=== PATIENT | female | born 1950 | race Caucasian/White ===

== ENCOUNTER 2017-09-18 08:41 | Day surgery (SDC) | payer OTHER, MEDICAID ==
[2017-09-18] MEDS ORDERED: TETRACAINE 0.5% OPHTH 1 DOSE AFFEYE ONE ×3 (10:20→11:44)
[2017-09-18] MEDS ORDERED: VIGAMOX 0.5% OPHTH 1 DOSE AFFEYE ONE ×5 (10:21→11:56)
[2017-09-18] MEDS ORDERED: PROLENSA OPHTH 1 DOSE AFFEYE ONE (10:32)
[2017-09-18] MEDS ORDERED: ALPHAGAN-P OPHTH 1 DOSE AFFEYE ONE (10:33)
[2017-09-18] MEDS ORDERED: CYCLOGYL 1% OPHTH 1 DOSE OP ONE ×3 (10:34→10:36)
[2017-09-18] MEDS ORDERED: MYDRIACIL OPHTH 1 DOSE AFFEYE ONE ×3 (10:34→10:36)
[2017-09-18] MEDS ORDERED: AK-DILATE 2.5% OPHTH 1 DOSE OP ONE ×3 (10:34→10:36)
[2017-09-18] MEDS ORDERED: AK-DILATE 10% OPHTH 1 DOSE AFFEYE ONE (10:48)
[2017-09-18] MEDS ORDERED: NS 500 ML IV 500 ML IV ONE (10:51)
[2017-09-18] MEDS ORDERED: BETADINE OPHTH SOLN 5% EACHEYE ONE (11:38)
[2017-09-18] MEDS ORDERED: DUOVISC IO ONE ×2 (11:44→11:50)
[2017-09-18] MEDS ORDERED: XYLOCAINE-MPF 1% IJ ONE (11:44)
[2017-09-18] MEDS ORDERED: BSS OPHTH (PLAIN) 500 ML with VANCOMYCIN HCL 500 MG VIAL 25 MG, ADRENALINE CHL INJ 1 MG IR ONE ×3 (11:44)
[2017-09-18] MEDS ORDERED: ADRENALINE CHL INJ IJ ONE (11:44)
[2017-09-18 15:01] VITALS: BP 159/77
[2017-09-18] MEDS ORDERED: DIPRIVAN VIAL ONE (15:52)
== END 2017-09-18 12:20 | disposition home or self-care (01) ==
LOC: SURG1 08:41
PROVIDERS: ATTEND Ophthalmology
PROC: 08RK3JZ Replacement of Left Lens with Synthetic Substitute, Percutaneous Approach (ICD-10-PCS; principal; 2017-09-18 13:30)
PROC: 08DK3ZZ Extraction of Left Lens, Percutaneous Approach (ICD-10-PCS; principal; 2017-09-18 13:30)
DX: H25.12 Age-related nuclear cataract, left eye (principal); H25.042 Posterior subcapsular polar age-related cataract, left eye
CPT/HCPCS: A4217; J0170; J3370; J3490

== ENCOUNTER → 2022-05-05 13:10 | Observation (INO) ==
[2022-05-03 01:05] VITALS: BMI 27.3
[2022-05-03] MEDS: CIPRO IV 400 MG PREMIX* 400 MG/200 ML IV.SOLN. IV SCH ×2 (02:05→12:59)
[2022-05-03] MEDS: FLAGYL IV PREMIX 500 MG BAG 500 MG/100 ML BAG IV SCH ×3 (02:05→17:25)
[2022-05-03] MEDS: D5 1/2 NS 1,000 ML 1,000 ML IV SCH ×4 (02:05→17:25)
[2022-05-03] MEDS: PROTONIX INJ 40 MG VIAL IVP SCH ×2 (02:06→08:12)
[2022-05-03 05:24] LABS: BASOPHILS # (AUTO) 0.1 X10^3/uL (0.0-0.1); BASOPHILS % (AUTO) 0.8 % (0.2-1.0); EOSINOPHILS # (AUTO) 0.1 x10^3/uL (0.0-0.2); EOSINOPHILS % (AUTO) 1.3 % (0.9-2.9); HEMATOCRIT 29.2 % (36.0-47.0); HEMOGLOBIN 9.9 g/dL (12.0-16.0); LYMPHOCYTES # (AUTO) 1.5 X10^3/uL (1.3-2.9); LYMPHOCYTES % (AUTO) 19.4 % (21.0-51.0); MEAN CORPUSCULAR HEMOGLOBIN 29.1 pg (27.0-34.0); MEAN CORPUSCULAR HGB CONC 33.9 g/dL (33.0-35.0); MEAN CORPUSCULAR VOLUME 85.8 fL (80.0-100.0); MEAN PLATELET VOLUME 7.9 fL (7.4-11.0); MONOCYTES # (AUTO) 0.9 x10^3/uL (0.3-0.8); NEUTROPHILS # (AUTO) 5.4 x10^3/uL (2.2-4.8); NEUTROPHILS % (AUTO) 67.5 % (42.0-75.0); RED BLOOD COUNT 3.41 X10^6/uL (3.5-5.4); RED CELL DISTRIBUTION WIDTH 14.7 % (11.6-16.5); WHITE BLOOD COUNT 7.9 X10^3/uL (3.6-10.0)
[2022-05-03 05:35] LABS: ALBUMIN 2.7 g/dL (3.4-5.0); CALCIUM 7.6 mg/dL (8.5-10.1); CARBON DIOXIDE 25.9 mmol/L (21-32); COR CA(FOR HYPOALB) 8.6 mg/dL (8.5-10.1); CREATININE 1.3 mg/dL (0.55-1.02); TOTAL PROTEIN 7.6 g/dL (6.4-8.2)
[2022-05-03] MEDS: TYLENOL 325 MG TAB PO PRN (15:35)
--- NOTE | 2022-05-03 16:38 | DR.PROGNOT ---
Hospital Progress Notes - Progress Note for Day of: Progress Note Date: 05/03/22 - Chief Complaint Chief Complaint: less diarrhea today . stil having Lt side abdominal pain . no nausea or vomiting .. - Past Medical Family Social History Past Med/Fam/Surg Hx: No changes since H&P Allergies: Allergies No Known Drug Allergies Allergy (Verified 09/04/17 11:18) - Review Of Systems ROS: No change since H&P - Vital Signs Vital Signs: Temperature 97.7 F Pulse Rate [Left Brachial] 62 Respiratory Rate 18 Blood Pressure [Left Arm] 134/62 Blood Pressure [Right Arm] 125/59 Blood Pressure 133/60 O2 Sat by Pulse Oximetry 99 - Physical Exam Oriented: Normal Eyes: Normal Ear: Normal Throat: Normal Respiratory: Normal Cardiovascular: Normal : Normal GI:Auscultation: Normal GI:Palpation: Normal GI: Tenderness: LUQ, LLQ (soft abdomen with moderate Lt side tenderness .. BS+ ) Speech Pattern: Clear, Appropriate - Laboratory and Diagnostics Result Diagrams: 05/03/22 04:36 05/03/22 04:36 Labs: Laboratory WBC 7.9 X10^3/uL (3.6-10.0) 05/03/22 04:36 RBC 3.41 X10^6/uL (3.5-5.4) L 05/03/22 04:36 Hgb 9.9 g/dL (12.0-16.0) L 05/03/22 04:36 Hct 29.2 % (36.0-47.0) L 05/03/22 04:36 MCV 85.8 fL (80.0-100.0) 05/03/22 04:36 MCH 29.1 pg (27.0-34.0) 05/03/22 04:36 MCHC 33.9 g/dL (33.0-35.0) 05/03/22 04:36 RDW 14.7 % (11.6-16.5) 05/03/22 04:36 Plt Count 130 X10^3/uL (150.0-450.0) L 05/03/22 04:36 MPV 7.9 fL (7.4-11.0) 05/03/22 04:36 Neut % (Auto) 67.5 % (42.0-75.0) 05/03/22 04:36 Lymph % (Auto) 19.4 % (21.0-51.0) L 05/03/22 04:36 [place] % (Auto) 11.0 % (0.0-13.0) 05/03/22 04:36 Eos % (Auto) 1.3 % (0.9-2.9) 05/03/22 04:36 Baso % (Auto) 0.8 % (0.2-1.0) 05/03/22 04:36 Neut # (Auto) 5.4 x10^3/uL (2.2-4.8) H 05/03/22 04:36 Lymph # (Auto) 1.5 X10^3/uL (1.3-2.9) 05/03/22 04:36 [place] # (Auto) 0.9 x10^3/uL (0.3-0.8) H 05/03/22 04:36 Eos # (Auto) 0.1 x10^3/uL (0.0-0.2) 05/03/22 04:36 Baso # (Auto) 0.1 X10^3/uL (0.0-0.1) 05/03/22 04:36 Absolute Nucleated RBC 0.1 /100WBC 05/03/22 04:36 Sodium 136 mmol/L (136-145) 05/03/22 04:36 Corrected Sodium 137 mmol/L (136-145) 05/03/22 04:36 Potassium 3.6 mmol/L (3.5-5.1) 05/03/22 04:36 Chloride 104 mmol/L (98-107) 05/03/22 04:36 Carbon Dioxide 25.9 mmol/L (21-32) 05/03/22 04:36 BUN 12 mg/dL (7-18) 05/03/22 04:36 Creatinine 1.30 mg/dL (0.55-1.02) H 05/03/22 04:36 Est GFR (MDRD) Af Amer 52 (>60) L 05/03/22 04:36 Est GFR (MDRD) Non-Af 43 (>60) L 05/03/22 04:36 Glucose 126 mg/dL (65-99) H 05/03/22 04:36 POC Glucose (mg/dL) 127 mg/dL (65-99) H 05/03/22 05:33 Calcium 7.6 mg/dL (8.5-10.1) L 05/03/22 04:36 Corrected Calcium 8.6 mg/dL (8.5-10.1) 05/03/22 04:36 Total Bilirubin 0.50 mg/dL (0.2-1.0) 05/03/22 04:36 AST 15 Units/L (15-37) 05/03/22 04:36 ALT 8 Units/L (12-78) L 05/03/22 04:36 Alkaline Phosphatase 66 Units/L (46-116) 05/03/22 04:36 Total Protein 7.6 g/dL (6.4-8.2) 05/03/22 04:36 Albumin 2.7 g/dL (3.4-5.0) L 05/03/22 04:36 Globulin 4.9 g/dL (2.5-4.5) H 05/03/22 04:36 Albumin/Globulin Ratio 0.6 Ratio (1.1-2.1) L 05/03/22 04:36 Stool Description 10 grams 05/03/22 11:10 Stl Occult Blood (IFOB) Positive (NEGATIVE) A 05/03/22 11:10 Stl C. diff Tox B Gene Negative (NEGATIVE) 05/03/22 11:10 Stl C. diff [id number] Presumptive negative (NEGATIVE) 05/03/22 11:10 - Assessment and Plan 1: abdominal pain . positive blood in stool . abnormal CT possible colon mass distal TC . Rt colitis . on IV ABT , check stool for C Dif. for colonoscopy
[2022-05-03] MEDS: NEURONTIN CAP 300 MG PO SCH (23:59)
[2022-05-03] MEDS: REQUIP PO SCH (23:59)
[2022-05-04] MEDS: D5 1/2 NS 1,000 ML 1,000 ML IV SCH ×4 (00:59→21:39)
[2022-05-04] MEDS: CIPRO IV 400 MG PREMIX* 400 MG/200 ML IV.SOLN. IV SCH ×2 (02:23→13:52)
[2022-05-04] MEDS: FLAGYL IV PREMIX 500 MG BAG 500 MG/100 ML BAG IV SCH ×3 (02:23→17:01)
[2022-05-04] MEDS: NEURONTIN CAP 300 MG PO SCH ×3 (06:23→21:37)
[2022-05-04] MEDS: SYNTHROID 25 mcg TAB PO SCH (06:24)
[2022-05-04] MEDS: GLUCOTROL PO SCH ×2 (06:25→17:01)
[2022-05-04] MEDS: GLUCOPHAGE PO SCH ×2 (08:04→17:00)
[2022-05-04] MEDS: GOLYTELY or GAVILYTE or Equivalent PO SCH (09:30)
[2022-05-04] MEDS: ALDACTONE TAB 25 MG PO SCH (09:30)
[2022-05-04] MEDS: PROTONIX INJ 40 MG VIAL IVP SCH (09:30)
[2022-05-04] MEDS: TOPROL XL PO SCH (09:30)
--- NOTE | 2022-05-04 15:28 | DR.PROGNOT ---
Hospital Progress Notes - Progress Note for Day of: Progress Note Date: 05/04/22 - Chief Complaint Chief Complaint: less diarrhea today . stil having Lt side abdominal pain . no nausea or vomiting .. no rectal bleeding . C Dif was negative .. stool for blood was positve . afebrile .. - Past Medical Family Social History Past Med/Fam/Surg Hx: No changes since H&P Allergies: Allergies No Known Drug Allergies Allergy (Verified 09/04/17 11:18) - Review Of Systems ROS: No change since H&P - Vital Signs Vital Signs: Temperature 98.3 F Pulse Rate [Left Brachial] 58 Respiratory Rate 20 Blood Pressure [Left Arm] 126/64 Blood Pressure [Right Arm] 125/59 Blood Pressure 133/60 O2 Sat by Pulse Oximetry 98 - Physical Exam Oriented: Normal Eyes: Normal Ear: Normal Nose: Normal Throat: Normal Respiratory: Normal Cardiovascular: Normal : Normal GI:Auscultation: Normal GI:Palpation: Normal GI: Tenderness: LUQ, LLQ (soft abdomen with moderate Lt side tenderness .. BS+ ) Speech Pattern: Clear, Appropriate - Laboratory and Diagnostics Result Diagrams: 05/03/22 04:36 05/03/22 04:36 Labs: Laboratory WBC 7.9 X10^3/uL (3.6-10.0) 05/03/22 04:36 RBC 3.41 X10^6/uL (3.5-5.4) L 05/03/22 04:36 Hgb 9.9 g/dL (12.0-16.0) L 05/03/22 04:36 Hct 29.2 % (36.0-47.0) L 05/03/22 04:36 MCV 85.8 fL (80.0-100.0) 05/03/22 04:36 MCH 29.1 pg (27.0-34.0) 05/03/22 04:36 MCHC 33.9 g/dL (33.0-35.0) 05/03/22 04:36 RDW 14.7 % (11.6-16.5) 05/03/22 04:36 Plt Count 130 X10^3/uL (150.0-450.0) L 05/03/22 04:36 MPV 7.9 fL (7.4-11.0) 05/03/22 04:36 Neut % (Auto) 67.5 % (42.0-75.0) 05/03/22 04:36 Lymph % (Auto) 19.4 % (21.0-51.0) L 05/03/22 04:36 [place] % (Auto) 11.0 % (0.0-13.0) 05/03/22 04:36 Eos % (Auto) 1.3 % (0.9-2.9) 05/03/22 04:36 Baso % (Auto) 0.8 % (0.2-1.0) 05/03/22 04:36 Neut # (Auto) 5.4 x10^3/uL (2.2-4.8) H 05/03/22 04:36 Lymph # (Auto) 1.5 X10^3/uL (1.3-2.9) 05/03/22 04:36 [place] # (Auto) 0.9 x10^3/uL (0.3-0.8) H 05/03/22 04:36 Eos # (Auto) 0.1 x10^3/uL (0.0-0.2) 05/03/22 04:36 Baso # (Auto) 0.1 X10^3/uL (0.0-0.1) 05/03/22 04:36 Absolute Nucleated RBC 0.1 /100WBC 05/03/22 04:36 Sodium 136 mmol/L (136-145) 05/03/22 04:36 Corrected Sodium 137 mmol/L (136-145) 05/03/22 04:36 Potassium 3.6 mmol/L (3.5-5.1) 05/03/22 04:36 Chloride 104 mmol/L (98-107) 05/03/22 04:36 Carbon Dioxide 25.9 mmol/L (21-32) 05/03/22 04:36 BUN 12 mg/dL (7-18) 05/03/22 04:36 Creatinine 1.30 mg/dL (0.55-1.02) H 05/03/22 04:36 Est GFR (MDRD) Af Amer 52 (>60) L 05/03/22 04:36 Est GFR (MDRD) Non-Af 43 (>60) L 05/03/22 04:36 Glucose 126 mg/dL (65-99) H 05/03/22 04:36 POC Glucose (mg/dL) 167 mg/dL (65-99) H 05/04/22 12:06 Calcium 7.6 mg/dL (8.5-10.1) L 05/03/22 04:36 Corrected Calcium 8.6 mg/dL (8.5-10.1) 05/03/22 04:36 Total Bilirubin 0.50 mg/dL (0.2-1.0) 05/03/22 04:36 AST 15 Units/L (15-37) 05/03/22 04:36 ALT 8 Units/L (12-78) L 05/03/22 04:36 Alkaline Phosphatase 66 Units/L (46-116) 05/03/22 04:36 Total Protein 7.6 g/dL (6.4-8.2) 05/03/22 04:36 Albumin 2.7 g/dL (3.4-5.0) L 05/03/22 04:36 Globulin 4.9 g/dL (2.5-4.5) H 05/03/22 04:36 Albumin/Globulin Ratio 0.6 Ratio (1.1-2.1) L 05/03/22 04:36 Stool Description Brown liquid 05/03/22 21:07 Stl Occult Blood (IFOB) Negative (NEGATIVE) 05/03/22 21:07 Stl C. diff Tox B Gene Cancelled 05/03/22 21:07 Stl C. diff [id number] Cancelled 05/03/22 21:07 - Assessment and Plan 1: abdominal pain . positive blood in stool . abnormal CT possible colon mass distal TC . Rt colitis . on IV ABT ,. for colonoscopy in Am
[2022-05-04] MEDS: REQUIP PO SCH (21:37)
[2022-05-04] MEDS: TYLENOL 325 MG TAB PO PRN (21:37)
[2022-05-05] MEDS: CIPRO IV 400 MG PREMIX* 400 MG/200 ML IV.SOLN. IV SCH (00:45)
[2022-05-05] MEDS: FLAGYL IV PREMIX 500 MG BAG 500 MG/100 ML BAG IV SCH ×2 (00:50→08:54)
[2022-05-05] MEDS: D5 1/2 NS 1,000 ML 1,000 ML IV SCH ×2 (00:52→09:37)
[2022-05-05] MEDS: NEURONTIN CAP 300 MG PO SCH (06:07)
[2022-05-05] MEDS: GLUCOPHAGE PO SCH (06:07)
[2022-05-05] MEDS: GLUCOTROL PO SCH (06:07)
[2022-05-05] MEDS: SYNTHROID 25 mcg TAB PO SCH (06:07)
[2022-05-05] MEDS: ALDACTONE TAB 25 MG PO SCH ×2 (08:53→09:29)
[2022-05-05] MEDS: GOLYTELY or GAVILYTE or Equivalent PO SCH (08:54)
[2022-05-05] MEDS: TOPROL XL PO SCH ×2 (08:54→09:28)
[2022-05-05] MEDS: PROTONIX INJ 40 MG VIAL IVP SCH (08:54)
[2022-05-05 12:44] VITALS: BP 115/57
[~2022-05-05 13:10] MED LIST: DIPRIVAN VIAL 20 ML ONE; FLAGYL IV PREMIX 500 MG BAG 500 MG/100 ML BAG IV SCH; GLUCOPHAGE ONE; GOLYTELY or GAVILYTE or Equivalent PO ONE; MORPHINE SULFATE INJ 4 MG IVP PRN; NS 1,000 ML IV 1,000 ML ONE; REQUIP PO SCH; SNACK - Diabetic Appropriate PO SCH; TYLENOL 325 MG TAB PO ONE; ZOFRAN INJ 4 MG VIAL IVP PRN
== END | disposition home or self-care (01) ==
LOC: MED/SURG
PROVIDERS: ADMIT Surgery; ATTEND Surgery
DX: K57.30 Diverticulosis of large intestine without perforation or abscess without bleeding; R93.3 Abnormal findings on diagnostic imaging of other parts of digestive tract; R19.00 Intra-abdominal and pelvic swelling, mass and lump, unspecified site; D64.89 Other specified anemias

== ENCOUNTER 2022-05-24 16:36 | Inpatient (IN) ==
--- NOTE | 2022-05-24 18:15 | DR.EXTPAIN ---
HPI Time seen Time Seen by Provider: 05/24/22 18:12 PCP Primary Care Physician: brooke cruz HPI Comment HPI Comment: A 72 y/o female presents to this ED as referred by an outside surgeon to be evaluated for IV antibiotics and debridement of a diabetic ulcer. She statesthat she noted a spontaneous swelling and erythema to her Rt. foot 3 days ago. She set up an appt. at the wound clinic in [place], [place] and was seen by Dr. Webb. She states the wound on her Rt. foot was opened and packed/dressed and she was given a note and asked to come here to this ED. Complaint/Symptoms Chief Complaint:: pt woke up sunday with red and swollen right foot that had a white blister on it that popped. pt set up an appointment with wound clinic to see today and was reffered to the er here. pt right foot was packed with iodoform and wrapped over in the office today. Nurses notes reviewed Nurses Notes Review: Yes Source History Provided: Patient and Family Member Mode of arrival Mode of Arrival: Ambulatory Timing Onset of Chief Complaint: 05/21/22 Context History of: None Associated signs and symptoms Associated Signs and Symptoms: None PMH PMH Past Medical History: Yes Past Medical History: Arthritis, Diabetes and Hypertension Past Medical History Comment: cancer-ovarian, irregular heartbeat. Past Surgical History: Yes Surgical History: , Hysterectomy and Ortho Surgery Past Surgical History Comment: hernia repair x2. Family History History of Family Medical Conditions: Yes Family Medical History: Diabetes Mellitus, Cancer and Hypertension Social History Does patient currently use any type of tobacco product: No Have you used tobacco products in the last 12 months: No Type of Tobacco Use: None Does any household member use tobacco: No Alcohol Use: None Do you use any recreational Drugs:: No Lives With: Alone Infectious screening In the last 2 months have you had wt loss of >10#?: NO Have you had fever, night sweats or hemotysis?: No Have you traveled outside the country in the last 6 months?: No Isolation: Standard ROS Review of Systems Constitutional: No Symptoms Reported Eyes: No Symptoms Reported ENTM: No Symptoms Reported Respiratoy: No Symptoms Reported Cardiovascular: No Symptoms Reported Gastrointestinal/Abdominal: No Symptoms Reported Genitourinary: No Symptoms Reported Neurological: No Symptoms Reported Musculoskeletal: Foot (swelling and erythema, Rt. toes/foot) Integumentary: No Symptoms Reported Hematologic/Lymphatic: No Symptoms Reported Endocrine: No Symptoms Reported Psychiatric: No Symptoms Reported All Other Systems: Reviewed and Negative PE Vital Signs Vitals: Temperature 98.1 F Pulse Rate [Right Brachial] 59 Pulse Rate 64 Respiratory Rate 17 Blood Pressure [Left Arm] 139/65 Blood Pressure 177/72 O2 Sat by Pulse Oximetry 100 General Limitations: No Limitations General Appearance: Alert and In No Apparent Distress Head Head Exam: Normal Inspection, Atraumatic and Normocephalic Eyes Eye exam: Normal Appearance and EOMI ENT ENT Exam: Normal Exam, Normal Oropharynx, Normal External Ear Exam and Mucous Membranes Moist Neck Neck Exam: Normal Inspection, Full ROM and Trachea Midline Chest Chest Inspection: Normal Inspection and Symmetric Chest Wall Rise Respiratory Respiratory Exam: Normal Lung Sounds Bilat Cardiovascular Cardiovascular Exam: Regular Rate, Normal Rhythm, Normal Heart Sounds, +S1 and +S2 Abdominal Exam Abdominal Exam: Normal Inspection, Normal Bowel Sounds and Soft Lower Extremities Upper Leg Exam: Normal Inspection and Full ROM Knee Exam: Normal Inspection and Full ROM Lower Leg Exam: Normal Inspection and Full ROM Ankle Exam: Normal Inspection and Full ROM Foot/Toe Exam: Tenderness (distal Rt. foot, 2nd, 3rd and 4th toes on Rt. foot ), Swelling (distal Rt. foot, 2nd, 3rd and 4th toes on Rt. foot ) and Erythema (distal Rt. foot, 2nd, 3rd and 4th toes on Rt. foot ) Back Back Exam: Normal Inspection and Full ROM Neurological Neurological Exam: Alert and Oriented X3 Psychiatric Psychiatric Exam: Normal Affect and Normal Mood Skin Skin Exam: Dry, Intact and Normal Color COURSE Treatment Treatment: The dressing on the Rt. foot was taken down and I saw what was underlying there. This wound description and the pt's hx. and initial I & D from outside facility were discussed on-call surgeon here (Dr. Garcia) who agree to have the pt. admitted to his service. Admit orders have been written. Reevaluation 1st: Unchanged Education/Counseling Education/Counseling: Patient, Family, Education and Counseling Educated On: Treatment, Diagnosis, Prognosis and Needs for Follow Up ROR Labs Reviewed Laboratory Results Reviewed?: Yes Result Diagrams: 05/24/22 18:35 05/24/22 18:35 Laboratory: WBC 9.7 X10^3/uL (3.6-10.0) 05/24/22 18:35 RBC 3.62 X10^6/uL (3.5-5.4) 05/24/22 18:35 Hgb 10.7 g/dL (12.0-16.0) L 05/24/22 18:35 Hct 31.4 % (36.0-47.0) L 05/24/22 18:35 MCV 86.7 fL (80.0-100.0) 05/24/22 18:35 MCH 29.6 pg (27.0-34.0) 05/24/22 18:35 MCHC 34.2 g/dL (33.0-35.0) 05/24/22 18:35 RDW 16.1 % (11.6-16.5) 05/24/22 18:35 Plt Count 212 X10^3/uL (150.0-450.0) 05/24/22 18:35 MPV 7.3 fL (7.4-11.0) L 05/24/22 18:35 Neut % (Auto) 69.1 % (42.0-75.0) 05/24/22 18:35 Lymph % (Auto) 18.4 % (21.0-51.0) L 05/24/22 18:35 [place] % (Auto) 9.7 % (0.0-13.0) 05/24/22 18:35 Eos % (Auto) 1.9 % (0.9-2.9) 05/24/22 18:35 Baso % (Auto) 0.9 % (0.2-1.0) 05/24/22 18:35 Neut # (Auto) 6.7 x10^3/uL (2.2-4.8) H 05/24/22 18:35 Lymph # (Auto) 1.8 X10^3/uL (1.3-2.9) 05/24/22 18:35 [place] # (Auto) 0.9 x10^3/uL (0.3-0.8) H 05/24/22 18:35 Eos # (Auto) 0.2 x10^3/uL (0.0-0.2) 05/24/22 18:35 Baso # (Auto) 0.1 X10^3/uL (0.0-0.1) 05/24/22 18:35 Absolute Nucleated RBC 0.0 /100WBC 05/24/22 18:35 Sodium 133 mmol/L (136-145) L 05/24/22 18:35 Corrected Sodium TNP 05/24/22 18:35 Potassium 4.0 mmol/L (3.5-5.1) 05/24/22 18:35 Chloride 97 mmol/L (98-107) L 05/24/22 18:35 Carbon Dioxide 28.9 mmol/L (21-32) 05/24/22 18:35 BUN 10 mg/dL (7-18) 05/24/22 18:35 Creatinine 1.13 mg/dL (0.55-1.02) H 05/24/22 18:35 Est GFR (MDRD) Af Amer > 60 (>60) 05/24/22 18:35 Est GFR (MDRD) Non-Af 50 (>60) L 05/24/22 18:35 Glucose 69 mg/dL (65-99) 05/24/22 18:35 Calcium 8.7 mg/dL (8.5-10.1) 05/24/22 18:35 Corrected Calcium 9.4 mg/dL (8.5-10.1) 05/24/22 18:35 Total Bilirubin 0.40 mg/dL (0.2-1.0) 05/24/22 18:35 AST 19 Units/L (15-37) 05/24/22 18:35 ALT 14 Units/L (12-78) 05/24/22 18:35 Alkaline Phosphatase 105 Units/L (46-116) 05/24/22 18:35 Total Protein 9.1 g/dL (6.4-8.2) H 05/24/22 18:35 Albumin 3.1 g/dL (3.4-5.0) L 05/24/22 18:35 Globulin 6.0 g/dL (2.5-4.5) H 05/24/22 18:35 Albumin/Globulin Ratio 0.5 Ratio (1.1-2.1) L 05/24/22 18:35 Opioid Opioid Risk Tool Age (Adarsh box if 16-45): No History of Preadolescent Sexual Abuse: No Total: 0 Total Score Risk Category: Low Risk Copyright: Louie NEGRO predicting aberrant behaviors Discharge Plan Diagnosis Discharge Problem: HTN (hypertension) Diabetic foot ulcer Qualifiers: Diabetic foot ulcer location: toe Diabetes mellitus type: type 2 Laterality: right Non-pressure ulcer stage: with fat layer exposed Qualified Code(s): E11.621 - Type 2 diabetes mellitus with foot ulcer Discharge Plan Patient Disposition: 09 ADMITTED INPATIENT Condition: Stable
[2022-05-24 18:47] LABS: BASOPHILS # (AUTO) 0.1 X10^3/uL (0.0-0.1); BASOPHILS % (AUTO) 0.9 % (0.2-1.0); EOSINOPHILS # (AUTO) 0.2 x10^3/uL (0.0-0.2); EOSINOPHILS % (AUTO) 1.9 % (0.9-2.9); HEMATOCRIT 31.4 % (36.0-47.0); HEMOGLOBIN 10.7 g/dL (12.0-16.0); LYMPHOCYTES # (AUTO) 1.8 X10^3/uL (1.3-2.9); LYMPHOCYTES % (AUTO) 18.4 % (21.0-51.0); MEAN CORPUSCULAR HEMOGLOBIN 29.6 pg (27.0-34.0); MEAN CORPUSCULAR HGB CONC 34.2 g/dL (33.0-35.0); MEAN CORPUSCULAR VOLUME 86.7 fL (80.0-100.0); MEAN PLATELET VOLUME 7.3 fL (7.4-11.0); MONOCYTES # (AUTO) 0.9 x10^3/uL (0.3-0.8); MONOCYTES % (AUTO) 9.7 % (0.0-13.0); NEUTROPHILS # (AUTO) 6.7 x10^3/uL (2.2-4.8); NEUTROPHILS % (AUTO) 69.1 % (42.0-75.0); RED BLOOD COUNT 3.62 X10^6/uL (3.5-5.4); RED CELL DISTRIBUTION WIDTH 16.1 % (11.6-16.5); WHITE BLOOD COUNT 9.7 X10^3/uL (3.6-10.0)
[2022-05-24 18:54] LABS: ALANINE AMINOTRANSFERASE 14 Units/L (12-78); ALBUMIN 3.1 g/dL (3.4-5.0); ALKALINE PHOSPHATASE 105 Units/L (46-116); ASPARTATE AMINO TRANSFERASE 19 Units/L (15-37); BLOOD UREA NITROGEN 10 mg/dL (7-18); CALCIUM 8.7 mg/dL (8.5-10.1); CARBON DIOXIDE 28.9 mmol/L (21-32); CHLORIDE 97 mmol/L (98-107); COR CA(FOR HYPOALB) 9.4 mg/dL (8.5-10.1); CREATININE 1.13 mg/dL (0.55-1.02); SODIUM 133 mmol/L (136-145); TOTAL PROTEIN 9.1 g/dL (6.4-8.2); eGFR NON BLACK RACES 50 (>60)
[2022-05-24] MEDS ORDERED: ZOSYN VIAL 3.375 GRAMS 3.375 G in NS 100 ML IV 100 ML IV ONE (18:55)
[2022-05-24] MEDS ORDERED: NS 100 ML IV 100 ML ONE (19:20)
[2022-05-24] MEDS ORDERED: ZOSYN VIAL 3.375 GRAMS IV ONE (19:20)
[2022-05-24] MEDS ORDERED: NS 1,000 ML IV 1,000 ML ONE (19:20)
[2022-05-24] MEDS: NS 1,000 ML IV 1,000 ML IV SCH ×2 (19:35→22:41)
[2022-05-24] MEDS ORDERED: NovoLIN R (or HumuLIN R) SUBCUT PRN (20:19)
[2022-05-24] MEDS: ZOSYN VIAL 3.375 GRAMS 3.375 G in NS 100 ML IV 100 ML IV SCH ×2 (20:29→22:37)
[2022-05-24] MEDS: NEURONTIN CAP 300 MG PO SCH (22:37)
[2022-05-24] MEDS: GLUCOPHAGE PO SCH (22:38)
[2022-05-24] MEDS: GLUCOTROL PO SCH (22:41)
[2022-05-24] MEDS: REQUIP PO SCH (22:41)
--- NOTE | 2022-05-25 00:19 | DR.H&P ---
H&P History & Physical for Day of: H&P Date: 05/24/22 Chief Complaint Chief Complaint: Redness and swelling dorsum right foot between heads of 1st and 2nd metatarsal. Allergies Allergies Allergy/AdvReac Type Severity Reaction Status Date / Time No Known Drug Allergies Allergy Verified 09/04/17 11:18 History of Present Illness History of Present Illness: 72 year old female with 4 Day history of redness and swelling of the dorsum of the right foot between the first and second metatarsal head. Patient is diabetic. She was seen at the wound care clinic in [place], [place] and underwent incision and drainage of this area. Still was surrounding redness . Past Medical History Past Medical History: Arthritis, Diabetes and Hypertension Past Surgical History Surgical History: , Hysterectomy and Ortho Surgery Family History Family Medical History: Diabetes Mellitus, Cancer and Hypertension Social History Does patient currently use any type of tobacco product: No Have you used tobacco products in the last 12 months: No Type of Tobacco Use: None Does any household member use tobacco: No Alcohol Use: None Medications Home Medications: No Known Drug Allergies Allergy (Verified 09/04/17 11:18) Dexilant daily 1 cap daily [id number] mg po TID glipizide BID [id number] mcg daily meclizine 25 mg BID zofran ropinole qhs spironolactone daily Labs Result Diagrams: 05/24/22 18:35 05/24/22 18:35 Labs: Laboratory WBC 9.7 X10^3/uL (3.6-10.0) 05/24/22 18:35 RBC 3.62 X10^6/uL (3.5-5.4) 05/24/22 18:35 Hgb 10.7 g/dL (12.0-16.0) L 05/24/22 18:35 Hct 31.4 % (36.0-47.0) L 05/24/22 18:35 MCV 86.7 fL (80.0-100.0) 05/24/22 18:35 MCH 29.6 pg (27.0-34.0) 05/24/22 18:35 MCHC 34.2 g/dL (33.0-35.0) 05/24/22 18:35 RDW 16.1 % (11.6-16.5) 05/24/22 18:35 Plt Count 212 X10^3/uL (150.0-450.0) 05/24/22 18:35 MPV 7.3 fL (7.4-11.0) L 05/24/22 18:35 Neut % (Auto) 69.1 % (42.0-75.0) 05/24/22 18:35 Lymph % (Auto) 18.4 % (21.0-51.0) L 05/24/22 18:35 [place] % (Auto) 9.7 % (0.0-13.0) 05/24/22 18:35 Eos % (Auto) 1.9 % (0.9-2.9) 05/24/22 18:35 Baso % (Auto) 0.9 % (0.2-1.0) 05/24/22 18:35 Neut # (Auto) 6.7 x10^3/uL (2.2-4.8) H 05/24/22 18:35 Lymph # (Auto) 1.8 X10^3/uL (1.3-2.9) 05/24/22 18:35 [place] # (Auto) 0.9 x10^3/uL (0.3-0.8) H 05/24/22 18:35 Eos # (Auto) 0.2 x10^3/uL (0.0-0.2) 05/24/22 18:35 Baso # (Auto) 0.1 X10^3/uL (0.0-0.1) 05/24/22 18:35 Absolute Nucleated RBC 0.0 /100WBC 05/24/22 18:35 Sodium 133 mmol/L (136-145) L 05/24/22 18:35 Corrected Sodium TNP 05/24/22 18:35 Potassium 4.0 mmol/L (3.5-5.1) 05/24/22 18:35 Chloride 97 mmol/L (98-107) L 05/24/22 18:35 Carbon Dioxide 28.9 mmol/L (21-32) 05/24/22 18:35 BUN 10 mg/dL (7-18) 05/24/22 18:35 Creatinine 1.13 mg/dL (0.55-1.02) H 05/24/22 18:35 Est GFR (MDRD) Af Amer > 60 (>60) 05/24/22 18:35 Est GFR (MDRD) Non-Af 50 (>60) L 05/24/22 18:35 Glucose 69 mg/dL (65-99) 05/24/22 18:35 POC Glucose (mg/dL) 144 mg/dL (65-99) H 05/24/22 22:31 Calcium 8.7 mg/dL (8.5-10.1) 05/24/22 18:35 Corrected Calcium 9.4 mg/dL (8.5-10.1) 05/24/22 18:35 Total Bilirubin 0.40 mg/dL (0.2-1.0) 05/24/22 18:35 AST 19 Units/L (15-37) 05/24/22 18:35 ALT 14 Units/L (12-78) 05/24/22 18:35 Alkaline Phosphatase 105 Units/L (46-116) 05/24/22 18:35 Total Protein 9.1 g/dL (6.4-8.2) H 05/24/22 18:35 Albumin 3.1 g/dL (3.4-5.0) L 05/24/22 18:35 Globulin 6.0 g/dL (2.5-4.5) H 05/24/22 18:35 Albumin/Globulin Ratio 0.5 Ratio (1.1-2.1) L 05/24/22 18:35 SARS CoV-2 RNA Rapid STACY Negative (NEGATIVE) 05/24/22 20:40 Review of Systems Constitutional: See HPI Eyes: No Symptoms Reported ENT: No Symptoms Reported Respiratory: No Symptoms Reported Cardiovascular: No Symptoms Reported Gastrointestinal: No Symptoms Reported Genitourinary: No Symptoms Reported Musculoskeletal: See HPI Skin: See HPI Neurological: No Symptoms Reported Physical Exam Vital Signs: Temperature 98.3 F Pulse Rate [Right Brachial] 57 Pulse Rate 64 Respiratory Rate 18 Blood Pressure [Right Arm] 133/62 Blood Pressure [Left Arm] 139/65 Blood Pressure 177/72 O2 Sat by Pulse Oximetry 99 Oriented: Normal, Time, Person and Place Eyes: Normal Ear: Normal Nose: Normal Throat: Normal Respiratory: Clear Throughout Cardiovascular: Normal : Normal Auscultation: Bowel Sounds: Normal Palpation: Normal Tenderness: Normal Skin: Other (4 cm abscess dorsal right foot between 1st and 2nd metatarsal head) Musculoskeletal: Normal Psychiatric: Normal Mood Description: Calm Affect: Normal Speech Pattern: Clear Assessment/Plan (1) Abscess of right foot: Status: Acute Plan: May require further incision and drainage. IV antibiotics (2) HTN (hypertension): Status: Acute Plan: usual home medications (3) Gastro-esophageal reflux: Status: Acute Plan: usual home medications
[2022-05-25] MEDS ORDERED: NS 250 ML IV 250 ML IV PRN (00:21)
[2022-05-25 00:43] VITALS: BMI 25.8
[2022-05-25] MEDS: NS 1,000 ML IV 1,000 ML IV SCH ×3 (04:38→19:00)
[2022-05-25] MEDS: ZOSYN VIAL 3.375 GRAMS 3.375 G in NS 100 ML IV 100 ML IV SCH ×3 (05:04→21:34)
[2022-05-25] MEDS: NEURONTIN CAP 300 MG PO SCH ×3 (05:05→21:34)
[2022-05-25] MEDS ORDERED: SYNTHROID 25 mcg TAB ONE (05:25)
[2022-05-25] MEDS: SYNTHROID 25 mcg TAB PO SCH (06:01)
[2022-05-25 06:32] LABS: BASOPHILS % (AUTO) 0.6 % (0.2-1.0); EOSINOPHILS # (AUTO) 0.2 x10^3/uL (0.0-0.2); EOSINOPHILS % (AUTO) 2.2 % (0.9-2.9); HEMATOCRIT 27.7 % (36.0-47.0); HEMOGLOBIN 9.5 g/dL (12.0-16.0); LYMPHOCYTES # (AUTO) 1.7 X10^3/uL (1.3-2.9); LYMPHOCYTES % (AUTO) 23.8 % (21.0-51.0); MEAN CORPUSCULAR HEMOGLOBIN 29.8 pg (27.0-34.0); MEAN CORPUSCULAR HGB CONC 34.5 g/dL (33.0-35.0); MEAN CORPUSCULAR VOLUME 86.6 fL (80.0-100.0); MEAN PLATELET VOLUME 7.4 fL (7.4-11.0); MONOCYTES # (AUTO) 0.8 x10^3/uL (0.3-0.8); MONOCYTES % (AUTO) 11.1 % (0.0-13.0); NEUTROPHILS # (AUTO) 4.3 x10^3/uL (2.2-4.8); NEUTROPHILS % (AUTO) 62.3 % (42.0-75.0); RED BLOOD COUNT 3.19 X10^6/uL (3.5-5.4); RED CELL DISTRIBUTION WIDTH 15.9 % (11.6-16.5)
--- NOTE | 2022-05-25 06:39 | RAD ---
HISTORYDiabetic foot ulcerSTUDYRight foot three viewsCOMPARISONNoneFINDINGSThere is no evidence for fracture, lytic, or blastic lesion. No erosive arthritis is identified. No abnormal periosteal reaction or soft tissue gas identified. The carpal bones are intact and normally aligned. Degenerative joint disease is present in the tarsometatarsal joint and tarsal joints. There are no plain film findings suggestive of osteomyelitis at this time.IMPRESSIONNo plain film findings suggestive of osteomyelitis. If osteomyelitis is a strong clinical consideration MRI with and without contrast would be of further diagnostic value.Degenerative joint disease in the tarsal joints and tarsometatarsal jointsElectronically signed by: SHAYNE STOVALL (May 25, 2022 06:37:22)
[2022-05-25 06:42] LABS: ALANINE AMINOTRANSFERASE 10 Units/L (12-78); ALBUMIN 2.5 g/dL (3.4-5.0); ALKALINE PHOSPHATASE 80 Units/L (46-116); ASPARTATE AMINO TRANSFERASE 16 Units/L (15-37); BLOOD UREA NITROGEN 9 mg/dL (7-18); CALCIUM 8.2 mg/dL (8.5-10.1); CARBON DIOXIDE 28.4 mmol/L (21-32); CHLORIDE 103 mmol/L (98-107); COR CA(FOR HYPOALB) 9.4 mg/dL (8.5-10.1); CREATININE 1.05 mg/dL (0.55-1.02); SODIUM 138 mmol/L (136-145); TOTAL PROTEIN 7.5 g/dL (6.4-8.2); TSH (3RD GENERATION) 1.968 uIU/mL (0.358-3.74); eGFR NON BLACK RACES 55 (>60)
[2022-05-25] MEDS ORDERED: GLUCOPHAGE ONE ×2 (08:03→20:04)
[2022-05-25] MEDS: GLUCOTROL PO SCH ×2 (08:42→21:33)
[2022-05-25] MEDS: TOPROL XL PO SCH (08:42)
[2022-05-25] MEDS: ZOCOR TAB 10 MG PO SCH (08:42)
[2022-05-25] MEDS: ALDACTONE TAB 25 MG PO SCH (08:42)
[2022-05-25] MEDS: GLUCOPHAGE PO SCH ×2 (08:42→21:33)
[2022-05-25] MEDS: SNACK - Diabetic Appropriate PO SCH (20:55)
[2022-05-25] MEDS: REQUIP PO SCH (21:34)
[2022-05-25] MEDS: IMODIUM CAP 2 MG PO PRN (21:35)
[2022-05-26] MEDS: IMODIUM CAP 2 MG PO PRN ×3 (01:32→14:09)
[2022-05-26] MEDS: ZOSYN VIAL 3.375 GRAMS 3.375 G in NS 100 ML IV 100 ML IV SCH ×3 (05:40→21:50)
[2022-05-26] MEDS: NEURONTIN CAP 300 MG PO SCH ×3 (05:40→21:50)
[2022-05-26] MEDS: SYNTHROID 25 mcg TAB PO SCH (06:07)
[2022-05-26 06:30] LABS: BASOPHILS # (AUTO) 0.1 X10^3/uL (0.0-0.1); BASOPHILS % (AUTO) 0.7 % (0.2-1.0); EOSINOPHILS # (AUTO) 0.2 x10^3/uL (0.0-0.2); EOSINOPHILS % (AUTO) 2.8 % (0.9-2.9); HEMATOCRIT 28.9 % (36.0-47.0); HEMOGLOBIN 9.7 g/dL (12.0-16.0); LYMPHOCYTES # (AUTO) 1.7 X10^3/uL (1.3-2.9); LYMPHOCYTES % (AUTO) 24.5 % (21.0-51.0); MEAN CORPUSCULAR HEMOGLOBIN 29.4 pg (27.0-34.0); MEAN CORPUSCULAR HGB CONC 33.5 g/dL (33.0-35.0); MEAN CORPUSCULAR VOLUME 87.9 fL (80.0-100.0); MEAN PLATELET VOLUME 7.3 fL (7.4-11.0); MONOCYTES # (AUTO) 0.6 x10^3/uL (0.3-0.8); MONOCYTES % (AUTO) 7.9 % (0.0-13.0); NEUTROPHILS # (AUTO) 4.5 x10^3/uL (2.2-4.8); NEUTROPHILS % (AUTO) 64.1 % (42.0-75.0); RED BLOOD COUNT 3.29 X10^6/uL (3.5-5.4); RED CELL DISTRIBUTION WIDTH 16.6 % (11.6-16.5); WHITE BLOOD COUNT 7.1 X10^3/uL (3.6-10.0)
[2022-05-26 06:35] LABS: ALANINE AMINOTRANSFERASE 12 Units/L (12-78); ALBUMIN 2.6 g/dL (3.4-5.0); ALKALINE PHOSPHATASE 88 Units/L (46-116); ASPARTATE AMINO TRANSFERASE 16 Units/L (15-37); BLOOD UREA NITROGEN 5 mg/dL (7-18); CALCIUM 8.2 mg/dL (8.5-10.1); CARBON DIOXIDE 27.7 mmol/L (21-32); CHLORIDE 106 mmol/L (98-107); COR CA(FOR HYPOALB) 9.3 mg/dL (8.5-10.1); CREATININE 1.09 mg/dL (0.55-1.02); SODIUM 140 mmol/L (136-145); TOTAL PROTEIN 7.7 g/dL (6.4-8.2); eGFR NON BLACK RACES 52 (>60)
[2022-05-26] MEDS: NS 1,000 ML IV 1,000 ML IV SCH ×4 (06:43→21:19)
[2022-05-26] MEDS ORDERED: GLUCOPHAGE ONE ×2 (08:30→20:02)
--- NOTE | 2022-05-26 08:58 | MRI ---
HISTORYright foot pain ; right foot ulcer ; rule out osteomyelitsisSTUDYEXT LOWER NON-JOINT W W/O CONCOMPARISONPlain film dated 05/25/2020TECHNIQUEMultiplanar multi sequences images through the right foot was performed with and without contrast.FINDINGSThere is a focal in the plantar soft tissues of the third metatarsal-phalangeal joint. There is some mild edema with enhancement of the tar proximal phalanx and minimal in the 3rd metatarsal head consistent with early osteomyelitis. No evidence of drainable collectionsThere are multiple cystic changes along the tarsal bones and metatatarsal bases more severe in the 4th and 3rd metatarsal tarsal joints, there is also edema with some enhancement involving the base of the 4th metatarsal bone that could be degenerative and related to neuropathic jointThe Achillis tendon demonstrate no abnormal signal and the insertion. There is a plantar calcaneal spur with thinning of the plantar fascia and high signal at the level of the insertion. There is also cystic changes with edema involving the navicular bone and the cuboid bone and the cuneiforms. There is no evidence of drainable collectionsThe peroneal tendons and the flexor tendons demonstrate no abnormal signal. No acute fractures.IMPRESSIONDiffuse edema with enhancement of the soft tissues of the forefoot with a focal plantar ulcer at the level of the 3rd metatarsal phalangeal region with edema and enhancement of the 3rd proximal phalanx that could correspond with early osteomyelitis, there is also mild enhancement at the 3rd metatarsal head.Extensive cystic changes and loss of the joint space in the tarsal, metatarsal and inter tarsal joint consistent with a neuropathic joint.Edema at the base of the 4th metatarsal bone extending to the mid aspect with mild enhancement is no specific. It could be related to degenerative changes / arthritic changes; however osteomyelitis at the level is not excluded, clinical correlation or follow up can be peformed.Electronically signed by: Evelyn Leyva (May 26, 2022 08:56:49)
[2022-05-26] MEDS: GLUCOPHAGE PO SCH ×2 (09:10→20:25)
[2022-05-26] MEDS: TOPROL XL PO SCH (09:11)
[2022-05-26] MEDS: ALDACTONE TAB 25 MG PO SCH (09:11)
[2022-05-26] MEDS: GLUCOTROL PO SCH ×2 (09:11→20:26)
[2022-05-26] MEDS: ZOCOR TAB 10 MG PO SCH (09:11)
[2022-05-26] MEDS: ZOFRAN TAB 4 MG PO PRN (14:09)
[2022-05-26] MEDS: PERCOCET TAB 5/325 MG PO PRN (14:09)
--- NOTE | 2022-05-26 15:14 | NOTE.SOAP ---
Soap Note Note for Day of Date of Exam: 05/25/22 Subjective Data Subjective Data: Doing well with IV antibiotics and dressing changes Objective Data Temperature: 97.8 F Pulse Rate: 52 Respiratory Rate: 18 Blood Pressure: 136/59 O2 Sat by Pulse Oximetry: 100 Objective Data: Redness of right foot wound resolved and exudate less . Plan x-rays negative for osteomylitis . MRI sugfests possible osteomyelitis of the 3rd and 4th metatarsals and tarsal bones. The area where the absess was drained was not commented upon. This neeeds to be interpreted with caution until the infection and inflammation of the soft tissue is resolved. Assessment Assessment: Cellulitis / abscess right foot Plan Plan: IV antibiotic and dressing changes . Will add Santyl to the daily wound dressing.
--- NOTE | 2022-05-26 15:36 | DR.PROGNOT ---
HOSPITAL PROGRESS NOTE Progress Note for Day of: Progress Note Date: 05/26/22 Past Medical Family Social History Allergies: Allergies No Known Drug Allergies Allergy (Verified 09/04/17 11:18) Vital Signs Vital Signs: Temperature 97.9 F Pulse Rate [Right Brachial] 53 Pulse Rate 52 Respiratory Rate 20 Blood Pressure [Right Arm] 116/58 Blood Pressure [Left Arm] 139/65 Blood Pressure 136/59 O2 Sat by Pulse Oximetry 99 Physical Exam Oriented: Normal, Time, Person and Place Eyes: Normal Ear: Normal Nose: Normal Throat: Normal Cardiovascular: Normal : Normal GI:Auscultation: Normal GI:Palpation: Normal GI: Tenderness: Normal Skin: Other (4 cm abscess dorsal right foot between 1st and 2nd metatarsal head) Musculoskeletal: Normal Psychiatric: Normal Mood Description: Calm Affect: Normal Speech Pattern: Clear and Appropriate Laboratory and Diagnostics Result Diagrams: 05/26/22 05:45 05/26/22 05:45 Labs: 05/24/22 20:45 Blood Blood Culture - Preliminary 05/24/22 20:33 Blood Blood Culture - Preliminary 05/25/22 16:23 Foot - Right Wound Gram Stain - Final Laboratory WBC 7.1 X10^3/uL (3.6-10.0) 05/26/22 05:45 RBC 3.29 X10^6/uL (3.5-5.4) L 05/26/22 05:45 Hgb 9.7 g/dL (12.0-16.0) L 05/26/22 05:45 Hct 28.9 % (36.0-47.0) L 05/26/22 05:45 MCV 87.9 fL (80.0-100.0) 05/26/22 05:45 MCH 29.4 pg (27.0-34.0) 05/26/22 05:45 MCHC 33.5 g/dL (33.0-35.0) 05/26/22 05:45 RDW 16.6 % (11.6-16.5) H 05/26/22 05:45 Plt Count 187 X10^3/uL (150.0-450.0) 05/26/22 05:45 MPV 7.3 fL (7.4-11.0) L 05/26/22 05:45 Neut % (Auto) 64.1 % (42.0-75.0) 05/26/22 05:45 Lymph % (Auto) 24.5 % (21.0-51.0) 05/26/22 05:45 Cotton % (Auto) 7.9 % (0.0-13.0) 05/26/22 05:45 Eos % (Auto) 2.8 % (0.9-2.9) 05/26/22 05:45 Baso % (Auto) 0.7 % (0.2-1.0) 05/26/22 05:45 Neut # (Auto) 4.5 x10^3/uL (2.2-4.8) 05/26/22 05:45 Lymph # (Auto) 1.7 X10^3/uL (1.3-2.9) 05/26/22 05:45 Cotton # (Auto) 0.6 x10^3/uL (0.3-0.8) 05/26/22 05:45 Eos # (Auto) 0.2 x10^3/uL (0.0-0.2) 05/26/22 05:45 Baso # (Auto) 0.1 X10^3/uL (0.0-0.1) 05/26/22 05:45 Absolute Nucleated RBC 0.1 /100WBC 05/26/22 05:45 Sodium 140 mmol/L (136-145) 05/26/22 05:45 Corrected Sodium TNP 05/26/22 05:45 Potassium 3.9 mmol/L (3.5-5.1) 05/26/22 05:45 Chloride 106 mmol/L (98-107) 05/26/22 05:45 Carbon Dioxide 27.7 mmol/L (21-32) 05/26/22 05:45 BUN 5 mg/dL (7-18) L 05/26/22 05:45 Creatinine 1.09 mg/dL (0.55-1.02) H 05/26/22 05:45 Est GFR (MDRD) Af Amer > 60 (>60) 05/26/22 05:45 Est GFR (MDRD) Non-Af 52 (>60) L 05/26/22 05:45 Glucose 60 mg/dL (65-99) L 05/26/22 05:45 Glucose 62 mg/dL (65-99) L 05/26/22 05:45 POC Glucose (mg/dL) 61 mg/dL (65-99) L 05/26/22 06:35 Calcium 8.2 mg/dL (8.5-10.1) L 05/26/22 05:45 Corrected Calcium 9.3 mg/dL (8.5-10.1) 05/26/22 05:45 Total Bilirubin 0.20 mg/dL (0.2-1.0) 05/26/22 05:45 AST 16 Units/L (15-37) 05/26/22 05:45 ALT 12 Units/L (12-78) 05/26/22 05:45 Alkaline Phosphatase 88 Units/L (46-116) 05/26/22 05:45 C-Reactive Protein 14.60 mg/L (0-3.0) H 05/26/22 05:45 Total Protein 7.7 g/dL (6.4-8.2) 05/26/22 05:45 Albumin 2.6 g/dL (3.4-5.0) L 05/26/22 05:45 Globulin 5.1 g/dL (2.5-4.5) H 05/26/22 05:45 Albumin/Globulin Ratio 0.5 Ratio (1.1-2.1) L 05/26/22 05:45 TSH 3rd Generation 1.968 uIU/mL (0.358-3.74) 05/25/22 05:20 SARS CoV-2 RNA Rapid STACY Negative (NEGATIVE) 05/24/22 20:40 Problem Patient Problems: Patient Problems (Updated 05/25/22 @ 00:17 by Michele Garcia) Diabetic foot ulcer (Acute) E11.621, L97.509 HTN (hypertension) (Acute) I10
--- NOTE | 2022-05-26 15:41 | NOTE.SOAP ---
Soap Note Note for Day of Date of Exam: 05/26/22 Subjective Data Subjective Data: No further changes Objective Data Temperature: 97.9 F Pulse Rate: 67 Respiratory Rate: 24 Blood Pressure: 148/65 O2 Sat by Pulse Oximetry: 0 Objective Data: Right foot wound continues to improve Assessment Assessment: cellulitis/ abscess to the right foot improving . Question of osteomyelitis. Plan Plan: Continue IV antibiotics and dressing changes
[2022-05-26] MEDS: SNACK - Diabetic Appropriate PO SCH (20:25)
[2022-05-26] MEDS: REQUIP PO SCH (20:40)
[2022-05-27] MEDS: IMODIUM CAP 2 MG PO PRN ×5 (00:58→22:04)
[2022-05-27] MEDS: NS 1,000 ML IV 1,000 ML IV SCH ×5 (02:16→21:25)
[2022-05-27 04:49] LABS: BASOPHILS # (AUTO) 0.1 X10^3/uL (0.0-0.1); EOSINOPHILS # (AUTO) 0.2 x10^3/uL (0.0-0.2); EOSINOPHILS % (AUTO) 3.6 % (0.9-2.9); HEMATOCRIT 27.2 % (36.0-47.0); HEMOGLOBIN 9.2 g/dL (12.0-16.0); LYMPHOCYTES # (AUTO) 1.6 X10^3/uL (1.3-2.9); LYMPHOCYTES % (AUTO) 26.4 % (21.0-51.0); MEAN CORPUSCULAR HEMOGLOBIN 29.4 pg (27.0-34.0); MEAN CORPUSCULAR HGB CONC 33.8 g/dL (33.0-35.0); MEAN CORPUSCULAR VOLUME 86.9 fL (80.0-100.0); MONOCYTES # (AUTO) 0.5 x10^3/uL (0.3-0.8); MONOCYTES % (AUTO) 8.6 % (0.0-13.0); NEUTROPHILS # (AUTO) 3.7 x10^3/uL (2.2-4.8); NEUTROPHILS % (AUTO) 60.4 % (42.0-75.0); RED BLOOD COUNT 3.13 X10^6/uL (3.5-5.4); RED CELL DISTRIBUTION WIDTH 16.3 % (11.6-16.5); WHITE BLOOD COUNT 6.1 X10^3/uL (3.6-10.0)
[2022-05-27 05:00] LABS: ALANINE AMINOTRANSFERASE 9 Units/L (12-78); ALBUMIN 2.4 g/dL (3.4-5.0); ALKALINE PHOSPHATASE 70 Units/L (46-116); ASPARTATE AMINO TRANSFERASE 14 Units/L (15-37); BLOOD UREA NITROGEN 5 mg/dL (7-18); CALCIUM 7.7 mg/dL (8.5-10.1); CARBON DIOXIDE 28.7 mmol/L (21-32); CHLORIDE 106 mmol/L (98-107); CREATININE 1.09 mg/dL (0.55-1.02); SODIUM 139 mmol/L (136-145); TOTAL PROTEIN 7.2 g/dL (6.4-8.2); eGFR NON BLACK RACES 52 (>60)
[2022-05-27] MEDS: ZOSYN VIAL 3.375 GRAMS 3.375 G in NS 100 ML IV 100 ML IV SCH ×3 (05:15→21:06)
[2022-05-27] MEDS: NEURONTIN CAP 300 MG PO SCH ×3 (05:15→21:04)
[2022-05-27] MEDS: SYNTHROID 25 mcg TAB PO SCH (05:30)
[2022-05-27] MEDS ORDERED: GLUCOPHAGE ONE ×2 (07:59→20:00)
[2022-05-27] MEDS: SANTYL EXT SCH ×2 (08:37→09:13)
[2022-05-27] MEDS: ALDACTONE TAB 25 MG PO SCH (08:37)
[2022-05-27] MEDS: GLUCOPHAGE PO SCH ×2 (08:37→21:06)
[2022-05-27] MEDS: GLUCOTROL PO SCH ×2 (08:37→21:06)
[2022-05-27] MEDS: ZOCOR TAB 10 MG PO SCH (08:38)
[2022-05-27] MEDS: TOPROL XL PO SCH (08:38)
[2022-05-27] MEDS: PERCOCET TAB 5/325 MG PO PRN (21:04)
[2022-05-27] MEDS: REQUIP PO SCH (21:04)
[2022-05-27] MEDS: SNACK - Diabetic Appropriate PO SCH (21:06)
[2022-05-27] MEDS: ZOFRAN TAB 4 MG PO PRN (22:36)
[2022-05-28] MEDS: NS 1,000 ML IV 1,000 ML IV SCH ×4 (05:10→21:12)
[2022-05-28] MEDS: NEURONTIN CAP 300 MG PO SCH ×3 (05:10→21:13)
[2022-05-28] MEDS: ZOSYN VIAL 3.375 GRAMS 3.375 G in NS 100 ML IV 100 ML IV SCH ×3 (05:11→21:13)
[2022-05-28 05:24] LABS: BASOPHILS # (AUTO) 0.1 X10^3/uL (0.0-0.1); BASOPHILS % (AUTO) 0.7 % (0.2-1.0); EOSINOPHILS # (AUTO) 0.3 x10^3/uL (0.0-0.2); EOSINOPHILS % (AUTO) 3.8 % (0.9-2.9); HEMATOCRIT 27.8 % (36.0-47.0); HEMOGLOBIN 9.4 g/dL (12.0-16.0); LYMPHOCYTES # (AUTO) 1.7 X10^3/uL (1.3-2.9); LYMPHOCYTES % (AUTO) 23.4 % (21.0-51.0); MEAN CORPUSCULAR HEMOGLOBIN 29.5 pg (27.0-34.0); MEAN CORPUSCULAR HGB CONC 33.7 g/dL (33.0-35.0); MEAN CORPUSCULAR VOLUME 87.5 fL (80.0-100.0); MEAN PLATELET VOLUME 7.2 fL (7.4-11.0); MONOCYTES # (AUTO) 0.6 x10^3/uL (0.3-0.8); MONOCYTES % (AUTO) 8.1 % (0.0-13.0); NEUTROPHILS # (AUTO) 4.6 x10^3/uL (2.2-4.8); RED BLOOD COUNT 3.18 X10^6/uL (3.5-5.4); RED CELL DISTRIBUTION WIDTH 16.2 % (11.6-16.5); WHITE BLOOD COUNT 7.2 X10^3/uL (3.6-10.0)
[2022-05-28 05:47] LABS: ALANINE AMINOTRANSFERASE 8 Units/L (12-78); ALBUMIN 2.3 g/dL (3.4-5.0); ALKALINE PHOSPHATASE 67 Units/L (46-116); ASPARTATE AMINO TRANSFERASE 18 Units/L (15-37); BLOOD UREA NITROGEN 5 mg/dL (7-18); CALCIUM 7.7 mg/dL (8.5-10.1); CARBON DIOXIDE 28.7 mmol/L (21-32); CHLORIDE 106 mmol/L (98-107); COR CA(FOR HYPOALB) 9.1 mg/dL (8.5-10.1); CREATININE 1.12 mg/dL (0.55-1.02); SODIUM 139 mmol/L (136-145); eGFR NON BLACK RACES 51 (>60)
[2022-05-28] MEDS ORDERED: GLUCOPHAGE ONE ×2 (08:14→20:18)
[2022-05-28] MEDS: SYNTHROID 25 mcg TAB PO SCH (09:04)
[2022-05-28] MEDS: TOPROL XL PO SCH (09:05)
[2022-05-28] MEDS: ALDACTONE TAB 25 MG PO SCH (09:05)
[2022-05-28] MEDS: GLUCOTROL PO SCH ×2 (09:05→20:30)
[2022-05-28] MEDS: ZOCOR TAB 10 MG PO SCH (09:05)
[2022-05-28] MEDS: GLUCOPHAGE PO SCH ×2 (09:05→20:29)
[2022-05-28] MEDS: SANTYL EXT SCH (09:05)
[2022-05-28] MEDS: IMODIUM CAP 2 MG PO PRN ×3 (09:06→22:36)
--- NOTE | 2022-05-28 10:31 | NOTE.SOAP ---
Soap Note Note for Day of Date of Exam: 05/27/22 Subjective Data Subjective Data: Continue to do well with IV antibiotics Objective Data Temperature: 98.7 F Pulse Rate: 53 Respiratory Rate: 22 Blood Pressure: 134/58 O2 Sat by Pulse Oximetry: 98 Objective Data: Redness nearly completely resolved with exudate of wound . Correction - wound is between tht 3rd and 4th metatarsal heads and this is is area of osteomylitis. Assessment Assessment: Abscess right foot Plan Plan: Continue IV antibiotics and dressing changes.
[2022-05-28] MEDS ORDERED: GLUTOSE 15 GEL ORAL PO PRN (17:42)
[2022-05-28] MEDS ORDERED: GLUTOSE 15 GEL ORAL PO ONE (17:47)
--- NOTE | 2022-05-28 17:52 | PCM.PROG ---
Progress Note Progress Note for Day of Date of Exam: 05/28/22 Subjective Subjective: Patient reports he is feeling better and is ready to go home. She had no acute problems yesterday or through the night. Blood pressure in the 140s over 60s this morning. Wound culture grew out Staph aureus which is sensitive to Zosyn. Continue current treatment. Past Medical Family Social History Allergies: Allergies No Known Drug Allergies Allergy (Verified 09/04/17 11:18) Vital Signs and I&O's Vital Signs: Temperature 98.4 F Pulse Rate [Right Brachial] 55 Pulse Rate 53 Respiratory Rate 20 Blood Pressure [Right Arm] 179/71 Blood Pressure [Left Arm] 139/65 Blood Pressure 134/58 O2 Sat by Pulse Oximetry 100 Intake and Output: Intake & Output 05/26/22 05/27/22 05/28/22 05/29/22 11:59 11:59 11:59 11:59 Intake Total 3711 / 3711 3490 / 3490 4669 / 4669 600 / 600 Balance 3711 / 3711 3490 / 3490 4669 / 4669 600 / 600 Physical Exam Oriented: Normal, Time, Person and Place Eyes: Normal Ear: Normal Nose: Normal Throat: Normal Cardiovascular: Normal : Normal Auscultation: Bowel Sounds: Normal Tenderness: Normal Skin: Other (4 cm abscess dorsal right foot between 1st and 2nd metatarsal head) Musculoskeletal: Normal Psychiatric: Normal Mood Description: Calm Affect: Normal Speech Pattern: Clear and Appropriate Laboratory and Diagnostics Result Diagrams: 05/28/22 04:35 05/28/22 04:35 Labs: 05/25/22 16:23 Foot - Right Wound Gram Stain - Final 05/25/22 16:23 Foot - Right Wound Culture - Final Staphylococcus Aureus 05/24/22 20:45 Blood Blood Culture - Preliminary 05/24/22 20:33 Blood Blood Culture - Preliminary Laboratory WBC 7.2 X10^3/uL (3.6-10.0) 05/28/22 04:35 RBC 3.18 X10^6/uL (3.5-5.4) L 05/28/22 04:35 Hgb 9.4 g/dL (12.0-16.0) L 05/28/22 04:35 Hct 27.8 % (36.0-47.0) L 05/28/22 04:35 MCV 87.5 fL (80.0-100.0) 05/28/22 04:35 MCH 29.5 pg (27.0-34.0) 05/28/22 04:35 MCHC 33.7 g/dL (33.0-35.0) 05/28/22 04:35 RDW 16.2 % (11.6-16.5) 05/28/22 04:35 Plt Count 177 X10^3/uL (150.0-450.0) 05/28/22 04:35 MPV 7.2 fL (7.4-11.0) L 05/28/22 04:35 Neut % (Auto) 64.0 % (42.0-75.0) 05/28/22 04:35 Lymph % (Auto) 23.4 % (21.0-51.0) 05/28/22 04:35 Iron % (Auto) 8.1 % (0.0-13.0) 05/28/22 04:35 Eos % (Auto) 3.8 % (0.9-2.9) H 05/28/22 04:35 Baso % (Auto) 0.7 % (0.2-1.0) 05/28/22 04:35 Neut # (Auto) 4.6 x10^3/uL (2.2-4.8) 05/28/22 04:35 Lymph # (Auto) 1.7 X10^3/uL (1.3-2.9) 05/28/22 04:35 Iron # (Auto) 0.6 x10^3/uL (0.3-0.8) 05/28/22 04:35 Eos # (Auto) 0.3 x10^3/uL (0.0-0.2) H 05/28/22 04:35 Baso # (Auto) 0.1 X10^3/uL (0.0-0.1) 05/28/22 04:35 Absolute Nucleated RBC 0.1 /100WBC 05/28/22 04:35 Sodium 139 mmol/L (136-145) 05/28/22 04:35 Corrected Sodium TNP 05/28/22 04:35 Potassium 4.3 mmol/L (3.5-5.1) 05/28/22 04:35 Chloride 106 mmol/L (98-107) 05/28/22 04:35 Carbon Dioxide 28.7 mmol/L (21-32) 05/28/22 04:35 BUN 5 mg/dL (7-18) L 05/28/22 04:35 Creatinine 1.12 mg/dL (0.55-1.02) H 05/28/22 04:35 Est GFR (MDRD) Af Amer > 60 (>60) 05/28/22 04:35 Est GFR (MDRD) Non-Af 51 (>60) L 05/28/22 04:35 Glucose 85 mg/dL (65-99) 05/28/22 04:35 POC Glucose (mg/dL) 66 mg/dL (65-99) 05/28/22 17:40 Calcium 7.7 mg/dL (8.5-10.1) L 05/28/22 04:35 Corrected Calcium 9.1 mg/dL (8.5-10.1) 05/28/22 04:35 Total Bilirubin 0.20 mg/dL (0.2-1.0) 05/28/22 04:35 AST 18 Units/L (15-37) 05/28/22 04:35 ALT 8 Units/L (12-78) L 05/28/22 04:35 Alkaline Phosphatase 67 Units/L (46-116) 05/28/22 04:35 C-Reactive Protein 5.10 mg/L (0-3.0) H 05/28/22 04:35 Total Protein 7.0 g/dL (6.4-8.2) 05/28/22 04:35 Albumin 2.3 g/dL (3.4-5.0) L 05/28/22 04:35 Globulin 4.7 g/dL (2.5-4.5) H 05/28/22 04:35 Albumin/Globulin Ratio 0.5 Ratio (1.1-2.1) L 05/28/22 04:35 TSH 3rd Generation 1.968 uIU/mL (0.358-3.74) 05/25/22 05:20 SARS CoV-2 RNA Rapid STACY Negative (NEGATIVE) 05/24/22 20:40 Plan (1) Abscess of right foot: Status: Acute Plan: May require further incision and drainage. IV antibiotics (2) HTN (hypertension): Status: Acute Plan: usual home medications (3) Gastro-esophageal reflux: Status: Acute Plan: usual home medications
[2022-05-28] MEDS ORDERED: TYLENOL 325 MG TAB PO PRN (19:44)
[2022-05-28] MEDS: REQUIP PO SCH (20:29)
[2022-05-28] MEDS: PERCOCET TAB 5/325 MG PO PRN (20:33)
[2022-05-28] MEDS: ZOFRAN TAB 4 MG PO PRN (20:33)
[2022-05-28] MEDS: SNACK - Diabetic Appropriate PO SCH (21:13)
[2022-05-29] MEDS: NS 1,000 ML IV 1,000 ML IV SCH ×2 (02:49→12:18)
[2022-05-29 04:53] LABS: BASOPHILS % (AUTO) 0.8 % (0.2-1.0); EOSINOPHILS # (AUTO) 0.2 x10^3/uL (0.0-0.2); EOSINOPHILS % (AUTO) 3.8 % (0.9-2.9); HEMATOCRIT 26.7 % (36.0-47.0); HEMOGLOBIN 9.1 g/dL (12.0-16.0); LYMPHOCYTES # (AUTO) 1.5 X10^3/uL (1.3-2.9); LYMPHOCYTES % (AUTO) 23.7 % (21.0-51.0); MEAN CORPUSCULAR HEMOGLOBIN 29.6 pg (27.0-34.0); MEAN PLATELET VOLUME 6.9 fL (7.4-11.0); MONOCYTES # (AUTO) 0.5 x10^3/uL (0.3-0.8); MONOCYTES % (AUTO) 7.7 % (0.0-13.0); RED BLOOD COUNT 3.06 X10^6/uL (3.5-5.4); RED CELL DISTRIBUTION WIDTH 16.3 % (11.6-16.5); WHITE BLOOD COUNT 6.2 X10^3/uL (3.6-10.0)
[2022-05-29 05:08] LABS: ALANINE AMINOTRANSFERASE 9 Units/L (12-78); ALBUMIN 2.3 g/dL (3.4-5.0); ALKALINE PHOSPHATASE 67 Units/L (46-116); ASPARTATE AMINO TRANSFERASE 16 Units/L (15-37); BLOOD UREA NITROGEN 6 mg/dL (7-18); CALCIUM 7.8 mg/dL (8.5-10.1); CARBON DIOXIDE 29.9 mmol/L (21-32); CHLORIDE 107 mmol/L (98-107); COR CA(FOR HYPOALB) 9.2 mg/dL (8.5-10.1); CREATININE 1.07 mg/dL (0.55-1.02); SODIUM 140 mmol/L (136-145); TOTAL PROTEIN 6.9 g/dL (6.4-8.2); eGFR NON BLACK RACES 53 (>60)
[2022-05-29] MEDS: NEURONTIN CAP 300 MG PO SCH (05:38)
[2022-05-29] MEDS: ZOSYN VIAL 3.375 GRAMS 3.375 G in NS 100 ML IV 100 ML IV SCH (05:39)
[2022-05-29] MEDS: ALDACTONE TAB 25 MG PO SCH (08:54)
[2022-05-29] MEDS: ZOCOR TAB 10 MG PO SCH (08:54)
[2022-05-29] MEDS: TOPROL XL PO SCH (08:54)
[2022-05-29] MEDS: IMODIUM CAP 2 MG PO PRN (08:54)
[2022-05-29] MEDS: GLUCOPHAGE PO SCH (10:39)
[2022-05-29] MEDS: GLUCOTROL PO SCH (10:40)
--- NOTE | 2022-05-29 10:52 | DR.CONSULT ---
Consult - Consultation for Day of: Date: 05/25/22 - Chief Complaint Chief Complaint: RIGHT FOOT PAIN, SWELLING, ERYTHEMA - History of Present Illness History of Present Illness: WAS ADMITTED FOR TREATMENT OF ABSCESS AND CELLULITIS OF THE RIGHT FOOT. WE WERE CONSULTED FOR MEDICAL MANAGEMENT. SHE APPARENTLY HAD REDNESS AND SWELLING OF THE RIGHT FOOT THAT STARTED ON 05/21/22. SHE WAS SEEN BY AT THE WOUND CLINIC IN [place], [place]. HE PERFORMED AN I&D AND PACKED WOUND. HE THEN SENT PATIENT TO THE ER FOR EVALUATION AND POSSIBLE ADMISSION. PATIENT WAS ADMITTED FROM THE ER AND STARTED ON ANTIBIOTICS AND WOUND CARE. HER PMH INCLUDES: ARTHRITIS, DM II, HTN, OVARIAN CANCER, , HYSTERECTOMY, HERNIA REPAIR X 2. TODAY, SHE IS ALERT AND ORIENTED, LYING IN BED ON MORNING ROUNDS. SHE CONTINUES WITH TENDERNESS TO THE RIGHT FOOT. ON EXAMINATION, HEART IS REGULAR IN RATE AND RHYTHM. BILATERAL LUNGS ARE CLEAR TO AUSCULTATION. ABDOMEN IS ROUND, SOFT, AND NON-TENDER WITH NORMAL BOWEL SOUNDS NOTED IN ALL QUADRANTS. THERE IS TENDERNESS, SWELLING, AND ERYTHEMA TO THE DISTAL RIGHT FOOT AND THE 2ND-4TH TOES. HER VITALS THIS MORNING ARE: 98.0-60-18-98%-139/63. LABS WERE OBTAINED. WBC 7.0, RBC 3.19, HGB 9.5, HCT 27.7, SODIUM 138, POTASSIUM 3.8, CHLORIDE 103, BUN 9, CREATININE 1.05, GLUCOSE 72, CALCIUM 8.2, AST 16, ALT 10, ALK PHOS 80, TOTAL PROTEIN 7.5, ALBUMIN 2.5, GLOBULIN 5.0. BLOOD CULTURES ARE PENDING. A RIGHT FOOT XRAY WAS OBTAINED AND REVEALED: No plain film findings suggestive of osteomyelitis. If osteomyelitis is a strong clinical consideration MRI with and without contrast would be of further diagnostic value. Degenerative joint disease in the tarsal joints and tarsometatarsal joints. SHE IS CURRENTLY RECEIVING NORMAL SALINE AT 125 ML/HR, ZOSYN 3.375G IV TID, OTBS ACHS, HUMULIN R SLIDING SCALE, OTBS ACHS, PERCOCET 5/325MG PO Q4H PRN PAIN, AND HER HOME MEDICATIONS WERE RESUMED. TODAY, WE WILL OBTAIN AN MRI OF THE RIGHT FOOT WITH AND WITHOUT CONTRAST. , GENERAL SURGEON, IS THE ADMITTING PHYSICIAN AND WILL CONTINUE TO FOLLOW PATIENT WELL. WOUND CARE PER ORDERS. OTHERWISE, WE WILL FOLLOW-UP WITH AM LABS AND CONTINUE TO MONITOR. TIME SPENT ON CLINICAL ASSESSMENT, REVIWING LABS AND IMAGING, DECISION MAKING, AND DOCUMENTATION GREATER THAN 75 MINUTES. - Past Medical History Past Medical History: Hypertension, Diabetes, Arthritis - Past Surgical History Surgical History: , Hysterectomy, Ortho Surgery - Family History Family Medical History: Diabetes Mellitus, Cancer, Hypertension - Social History Does patient currently use any type of tobacco product: No Have you used tobacco products in the last 12 months: No Type of Tobacco Use: None Does any household member use tobacco: No Alcohol Use: None Drug Use: None - Medications Home Medications: No Known Drug Allergies Allergy (Verified 09/04/17 11:18) - Review of Systems Constitutional: No Symptoms Reported Eyes: No Symptoms Reported ENT: No Symptoms Reported Respiratory: No Symptoms Reported Cardiovascular: No Symptoms Reported Gastrointestinal: No Symptoms Reported Genitourinary: No Symptoms Reported Musculoskeletal: See HPI, Foot Pain (RIGHT ) Skin: Wound (RIGHT FOOT ) Neurological: No Symptoms Reported - Physical Exam Vital Signs: Temperature 97.5 F Pulse Rate [Right Brachial] 51 Pulse Rate 53 Respiratory Rate 20 Blood Pressure [Right Arm] 163/68 Blood Pressure [Left Arm] 139/65 Blood Pressure 134/58 O2 Sat by Pulse Oximetry 99 Oriented: Normal Eyes: Normal Ear: Normal Nose: Normal Throat: Normal Respiratory: Clear Throughout Cardiovascular: Normal : Normal Auscultation: Bowel Sounds: Normal Palpation: Normal Tenderness: Normal Skin: Wound (4 cm abscess dorsal right foot between 3rd and 4th metatarsal head) Musculoskeletal: Normal Psychiatric: Normal Mood Description: Calm Affect: Normal Speech Pattern: Clear - Plan Plan: (1) Abscess of right foot: Status: Acute. Plan: Obtain MRI. May require further incision and drainage. IV antibiotics. (2) HTN (hypertension): Status: Acute. Plan: usual home medications. (3) Gastro-esophageal reflux: Status: Acute. Plan: usual home medications - Allergies Allergies/Adverse Reactions: Allergies Allergy/AdvReac Type Severity Reaction Status Date / Time No Known Drug Allergies Allergy Verified 09/04/17 11:18
--- NOTE | 2022-05-29 11:28 | PCM.PROG ---
Progress Note - Progress Note for Day of Date of Exam: 05/26/22 - Subjective Subjective: WAS ADMITTED INPATIENT STATUS FOR TREATMENT OF ABSCESS AND CELLULITIS OF THE RIGHT FOOT. TODAY, SHE IS ALERT AND ORIENTED, LYING IN BED ON MORNING ROUNDS. SHE CONTINUES WITH TENDERNESS TO THE RIGHT FOOT. ON EXAMINATION, HEART IS REGULAR IN RATE AND RHYTHM. BILATERAL LUNGS ARE CLEAR TO AUSCULTATION. ABDOMEN IS ROUND, SOFT, AND NON-TENDER WITH NORMAL BOWEL SOUNDS NOTED IN ALL QUADRANTS. THERE IS TENDERNESS, SWELLING, AND ERYTHEMA TO THE DISTAL RIGHT FOOT AND THE 2ND-4TH TOES. HER VITALS THIS MORNING ARE: 97.9-67-24-99%-148/65. LABS WERE OBTAINED. WBC 7.1, RBC 3.29, HGB 9.7, HCT 28.9, SODIUM 140, POTASSIUM 3.9, CHLORIDE 106, BUN 5, CREATININE 1.09, GLUCOSE 60, CALCIUM 8.2, AST 16, ALT 12, ALK PHOS 88, CRP 14.60, TOTAL PROTEIN 7.7, ALBUMIN 2.6, GLOBULIN 5.1. BLOOD AND WOUND CULTURES ARE PENDING. A MRI OF THE RIGHT FOOT WAS OBTAINED TODAY AND REVEALED: Diffuse edema with enhancement of the soft tissues of the forefoot with a focal plantar ulcer at the level of the 3rd metatarsal phalangeal region with edema and enhancement of the 3rd proximal phalanx that could correspond with early osteomyelitis, there is also mild enhancement at the 3rd metatarsal head. Extensive cystic changes and loss of the joint space in the tarsal, metatarsal and inter tarsal joint consistent with a neuropathic joint. Edema at the base of the 4th metatarsal bone extending to the mid aspect with mild enhancement is no specific. It could be related to degenerative changes / arthritic changes; however osteomyelitis at the level is not excluded, clinical correlation or follow up can be peformed. SHE IS CURRENTLY RECEIVING NORMAL SALINE AT 125 ML/HR, ZOSYN 3.375G IV TID, OTBS ACHS, HUMULIN R SLIDING SCALE, OTBS ACHS, PERCOCET 5/325MG PO Q4H PRN PAIN, AND HER HOME MEDICATIONS WERE RESUMED. , GENERAL SURGEON, IS THE ADMITTING PHYSICIAN AND WILL CONTINUE TO FOLLOW PATIENT. WOUND CARE PER ORDERS. OTHERWISE, WE WILL FOLLOW-UP WITH AM LABS AND CONTINUE TO MONITOR. TIME SPENT ON CLINICAL ASSESSMENT, REVIWING LABS AND IMAGING, DECISION MAKING, AND DOCUMENTATION GREATER THAN 45 MINUTES. - Past Medical Family Social History Past Med/Fam/Surg Hx: No changes since H&P Allergies: Allergies No Known Drug Allergies Allergy (Verified 09/04/17 11:18) - Review of Systems ROS: No change since H&P - Vital Signs and I&O's Vital Signs: Temperature 97.5 F Pulse Rate [Right Brachial] 51 Pulse Rate 53 Respiratory Rate 20 Blood Pressure [Right Arm] 163/68 Blood Pressure [Left Arm] 139/65 Blood Pressure 134/58 O2 Sat by Pulse Oximetry 99 Intake and Output: Intake & Output 05/26/22 05/27/22 05/28/22 05/29/22 11:59 11:59 11:59 11:59 Intake Total 3711 / 3711 3490 / 3490 4669 / 4669 3018 / 3018 Balance 3711 / 3711 3490 / 3490 4669 / 4669 3018 / 3018 - Physical Exam Oriented: Normal Eyes: Normal Ear: Normal Nose: Normal Throat: Normal Cardiovascular: Normal : Normal Auscultation: Bowel Sounds: Normal Palpation: Normal Tenderness: Normal Skin: Wound (4 cm abscess dorsal right foot between 3rd and 4th metatarsal head) Musculoskeletal: Normal Psychiatric: Normal Mood Description: Calm Affect: Normal Speech Pattern: Clear - Laboratory and Diagnostics Result Diagrams: 05/29/22 04:10 05/29/22 04:10 Labs: 05/25/22 16:23 Foot - Right Wound Gram Stain - Final 05/25/22 16:23 Foot - Right Wound Culture - Final Staphylococcus Aureus 05/24/22 20:45 Blood Blood Culture - Preliminary 05/24/22 20:33 Blood Blood Culture - Preliminary Laboratory WBC 6.2 X10^3/uL (3.6-10.0) 05/29/22 04:10 RBC 3.06 X10^6/uL (3.5-5.4) L 05/29/22 04:10 Hgb 9.1 g/dL (12.0-16.0) L 05/29/22 04:10 Hct 26.7 % (36.0-47.0) L 05/29/22 04:10 MCV 87.0 fL (80.0-100.0) 05/29/22 04:10 MCH 29.6 pg (27.0-34.0) 05/29/22 04:10 MCHC 34.0 g/dL (33.0-35.0) 05/29/22 04:10 RDW 16.3 % (11.6-16.5) 05/29/22 04:10 Plt Count 148 X10^3/uL (150.0-450.0) L 05/29/22 04:10 MPV 6.9 fL (7.4-11.0) L 05/29/22 04:10 Neut % (Auto) 64.0 % (42.0-75.0) 05/29/22 04:10 Lymph % (Auto) 23.7 % (21.0-51.0) 05/29/22 04:10 [place] % (Auto) 7.7 % (0.0-13.0) 05/29/22 04:10 Eos % (Auto) 3.8 % (0.9-2.9) H 05/29/22 04:10 Baso % (Auto) 0.8 % (0.2-1.0) 05/29/22 04:10 Neut # (Auto) 4.0 x10^3/uL (2.2-4.8) 05/29/22 04:10 Lymph # (Auto) 1.5 X10^3/uL (1.3-2.9) 05/29/22 04:10 [place] # (Auto) 0.5 x10^3/uL (0.3-0.8) 05/29/22 04:10 Eos # (Auto) 0.2 x10^3/uL (0.0-0.2) 05/29/22 04:10 Baso # (Auto) 0.0 X10^3/uL (0.0-0.1) 05/29/22 04:10 Absolute Nucleated RBC 0.1 /100WBC 05/29/22 04:10 Sodium 140 mmol/L (136-145) 05/29/22 04:10 Corrected Sodium TNP 05/29/22 04:10 Potassium 4.3 mmol/L (3.5-5.1) 05/29/22 04:10 Chloride 107 mmol/L (98-107) 05/29/22 04:10 Carbon Dioxide 29.9 mmol/L (21-32) 05/29/22 04:10 BUN 6 mg/dL (7-18) L 05/29/22 04:10 Creatinine 1.07 mg/dL (0.55-1.02) H 05/29/22 04:10 Est GFR (MDRD) Af Amer > 60 (>60) 05/29/22 04:10 Est GFR (MDRD) Non-Af 53 (>60) L 05/29/22 04:10 Glucose 85 mg/dL (65-99) 05/29/22 04:10 POC Glucose (mg/dL) 85 mg/dL (65-99) 05/29/22 05:27 Calcium 7.8 mg/dL (8.5-10.1) L 05/29/22 04:10 Corrected Calcium 9.2 mg/dL (8.5-10.1) 05/29/22 04:10 Total Bilirubin 0.20 mg/dL (0.2-1.0) 05/29/22 04:10 AST 16 Units/L (15-37) 05/29/22 04:10 ALT 9 Units/L (12-78) L 05/29/22 04:10 Alkaline Phosphatase 67 Units/L (46-116) 05/29/22 04:10 C-Reactive Protein 3.70 mg/L (0-3.0) H 05/29/22 04:10 Total Protein 6.9 g/dL (6.4-8.2) 05/29/22 04:10 Albumin 2.3 g/dL (3.4-5.0) L 05/29/22 04:10 Globulin 4.6 g/dL (2.5-4.5) H 05/29/22 04:10 Albumin/Globulin Ratio 0.5 Ratio (1.1-2.1) L 05/29/22 04:10 TSH 3rd Generation 1.968 uIU/mL (0.358-3.74) 05/25/22 05:20 SARS CoV-2 RNA Rapid STACY Negative (NEGATIVE) 05/24/22 20:40 - Plan (1) Cellulitis of right foot Status: Acute Plan: WOUND CARE, NORMAL SALINE AT 125 ML/HR, ZOSYN 3.375G IV TID, OTBS ACHS, HUMULIN R SLIDING SCALE, OTBS ACHS, PERCOCET 5/325MG PO Q4H PRN PAIN, AND HER HOME MEDICATIONS WERE RESUMED. (2) Abscess of right foot Status: Acute (3) Osteomyelitis of foot, right, acute Status: Acute (4) Gastro-esophageal reflux Status: Acute Qualifiers: Esophagitis presence: esophagitis presence not specified Qualified Code(s): K21.9 - Gastro-esophageal reflux disease without esophagitis Plan: usual home medications (5) HTN (hypertension) Status: Acute Qualifiers: Hypertension type: primary hypertension Qualified Code(s): I10 - Essential (primary) hypertension Plan: usual home medications
[2022-05-29 11:58] VITALS: BP 145/69
--- NOTE | 2022-05-29 11:58 | NOTE.SOAP ---
Soap Note Note for Day of Date of Exam: 05/28/22 Subjective Data Subjective Data: Patient continues to do well. Afebrile and wound cultures growing stapylococcus aureus. Objective Data Temperature: 98.6 F Pulse Rate: 54 Respiratory Rate: 18 Blood Pressure: 145/69 O2 Sat by Pulse Oximetry: 99 Objective Data: As above Assessment Assessment: Abscess to dorsal right foot. Question of osteomyelitis right foot . Plan Plan: D/C home 05/29/2022
--- NOTE | 2022-05-29 12:15 | W.DIS.FURT ---
Summary of Discharge Discharge Summary of Date Date of Exam: 05/29/22 Admission Date Date of Admission: 05/24/22 Admission Diagnosis Patient Problems (Updated 05/29/22 @ 11:27 by Vishal Lara) Cellulitis of right foot (Acute) L03.115 Osteomyelitis of foot, right, acute (Acute) M86.171 Gastro-esophageal reflux (Acute) K21.9 Abscess of right foot (Acute) L02.611 Diabetic foot ulcer (Acute) E11.621, L97.509 HTN (hypertension) (Acute) I10 Hospital Course: 72 [facility] female [facility] [place], [place] Status post incision and drainage of abscess to the dorsum of the right foot between the third and fourth metatarsal heads. She was referred to our emergency room for wound care and IV antibiotics. She was admiitted by me and underwent daily dressing changes with Santyl. Cultures grew staphylococcus aureus ( MSSA) sensitive to clindamycin. She had been treated with intravenous Zosyn prior to this . He will continue daily dressing changes with Santyl and I will see her in one week in follow up. Vital Signs: Vital Signs (72 hours) 05/26/22 15:19 05/26/22 15:41 05/28/22 10:39 Temperature 97.8 F 97.9 F 98.7 F Pulse Rate 52 L 67 53 L Pulse Rate [Right Brachial] Respiratory Rate 18 24 22 Blood Pressure 136/59 148/65 134/58 Blood Pressure [Right Arm] O2 Sat by Pulse Oximetry 100 0 L 98 Oxygen Delivery Method FIO2% 05/29/22 11:58 05/26/22 14:09 05/26/22 15:09 Temperature 98.6 F Pulse Rate 54 L Pulse Rate [Right Brachial] Respiratory Rate 18 16 17 Blood Pressure 145/69 Blood Pressure [Right Arm] O2 Sat by Pulse Oximetry 99 Oxygen Delivery Method FIO2% 05/26/22 15:34 05/26/22 20:00 05/27/22 00:00 Temperature 97.9 F 97.6 F 98.1 F Pulse Rate Pulse Rate [Right Brachial] 53 L 53 L 55 L Respiratory Rate 20 18 20 Blood Pressure Blood Pressure [Right Arm] 116/58 109/53 137/67 O2 Sat by Pulse Oximetry 99 97 99 Oxygen Delivery Method Room Air FIO2% 05/26/22 19:00 05/27/22 04:00 05/27/22 07:00 Temperature 98.1 F Pulse Rate Pulse Rate [Right Brachial] 53 L Respiratory Rate 20 Blood Pressure Blood Pressure [Right Arm] 130/60 O2 Sat by Pulse Oximetry 97 Oxygen Delivery Method Room Air Room Air FIO2% 21 05/27/22 08:00 05/27/22 12:00 05/27/22 16:00 Temperature 98.7 F 97.6 F 98.5 F Pulse Rate Pulse Rate [Right Brachial] 53 L 54 L 59 L Respiratory Rate 22 20 20 Blood Pressure Blood Pressure [Right Arm] 134/58 137/60 133/59 O2 Sat by Pulse Oximetry 98 100 99 Oxygen Delivery Method FIO2% 05/27/22 19:00 05/27/22 21:04 05/27/22 20:00 Temperature 98.5 F Pulse Rate Pulse Rate [Right Brachial] 55 L Respiratory Rate 16 18 Blood Pressure Blood Pressure [Right Arm] 164/67 O2 Sat by Pulse Oximetry 100 Oxygen Delivery Method Room Air FIO2% 21 05/27/22 22:04 05/28/22 00:00 05/28/22 03:59 Temperature 97.9 F 97.8 F Pulse Rate Pulse Rate [Right Brachial] 53 L 53 L Respiratory Rate 18 18 20 Blood Pressure Blood Pressure [Right Arm] 113/51 136/60 O2 Sat by Pulse Oximetry 95 100 Oxygen Delivery Method FIO2% 05/28/22 08:00 05/28/22 07:00 05/28/22 12:00 Temperature 97.6 F 98.2 F Pulse Rate Pulse Rate [Right Brachial] 56 L 52 L Respiratory Rate 18 18 Blood Pressure Blood Pressure [Right Arm] 144/63 133/63 O2 Sat by Pulse Oximetry 100 100 Oxygen Delivery Method Room Air Room Air Room Air FIO2% 21 05/28/22 15:52 05/28/22 19:00 05/28/22 19:48 Temperature 98.4 F 98.9 F Pulse Rate Pulse Rate [Right Brachial] 55 L 53 L Respiratory Rate 20 20 Blood Pressure Blood Pressure [Right Arm] 179/71 144/67 O2 Sat by Pulse Oximetry 100 100 Oxygen Delivery Method Room Air Room Air Room Air FIO2% 21 05/28/22 20:33 05/28/22 21:33 05/28/22 23:41 Temperature 98.6 F Pulse Rate Pulse Rate [Right Brachial] 54 L Respiratory Rate 16 18 18 Blood Pressure Blood Pressure [Right Arm] 145/69 O2 Sat by Pulse Oximetry 99 Oxygen Delivery Method Room Air FIO2% 05/29/22 03:35 05/29/22 07:00 05/29/22 08:00 Temperature 97.9 F 97.5 F L Pulse Rate Pulse Rate [Right Brachial] 51 L 51 L Respiratory Rate 18 20 Blood Pressure Blood Pressure [Right Arm] 137/63 163/68 O2 Sat by Pulse Oximetry 94 L 99 Oxygen Delivery Method Room Air Room Air Room Air FIO2% 21 Labs: Laboratory Last Values WBC 6.2 X10^3/uL (3.6-10.0) 05/29/22 04:10 RBC 3.06 X10^6/uL (3.5-5.4) L 05/29/22 04:10 Hgb 9.1 g/dL (12.0-16.0) L 05/29/22 04:10 Hct 26.7 % (36.0-47.0) L 05/29/22 04:10 MCV 87.0 fL (80.0-100.0) 05/29/22 04:10 MCH 29.6 pg (27.0-34.0) 05/29/22 04:10 MCHC 34.0 g/dL (33.0-35.0) 05/29/22 04:10 RDW 16.3 % (11.6-16.5) 05/29/22 04:10 Plt Count 148 X10^3/uL (150.0-450.0) L 05/29/22 04:10 MPV 6.9 fL (7.4-11.0) L 05/29/22 04:10 Neut % (Auto) 64.0 % (42.0-75.0) 05/29/22 04:10 Lymph % (Auto) 23.7 % (21.0-51.0) 05/29/22 04:10 [place] % (Auto) 7.7 % (0.0-13.0) 05/29/22 04:10 Eos % (Auto) 3.8 % (0.9-2.9) H 05/29/22 04:10 Baso % (Auto) 0.8 % (0.2-1.0) 05/29/22 04:10 Neut # (Auto) 4.0 x10^3/uL (2.2-4.8) 05/29/22 04:10 Lymph # (Auto) 1.5 X10^3/uL (1.3-2.9) 05/29/22 04:10 [place] # (Auto) 0.5 x10^3/uL (0.3-0.8) 05/29/22 04:10 Eos # (Auto) 0.2 x10^3/uL (0.0-0.2) 05/29/22 04:10 Baso # (Auto) 0.0 X10^3/uL (0.0-0.1) 05/29/22 04:10 Absolute Nucleated RBC 0.1 /100WBC 05/29/22 04:10 Sodium 140 mmol/L (136-145) 05/29/22 04:10 Corrected Sodium TNP 05/29/22 04:10 Potassium 4.3 mmol/L (3.5-5.1) 05/29/22 04:10 Chloride 107 mmol/L (98-107) 05/29/22 04:10 Carbon Dioxide 29.9 mmol/L (21-32) 05/29/22 04:10 BUN 6 mg/dL (7-18) L 05/29/22 04:10 Creatinine 1.07 mg/dL (0.55-1.02) H 05/29/22 04:10 Est GFR (MDRD) Af Amer > 60 (>60) 05/29/22 04:10 Est GFR (MDRD) Non-Af 53 (>60) L 05/29/22 04:10 Glucose 85 mg/dL (65-99) 05/29/22 04:10 POC Glucose (mg/dL) 106 mg/dL (65-99) H 05/29/22 11:48 Calcium 7.8 mg/dL (8.5-10.1) L 05/29/22 04:10 Corrected Calcium 9.2 mg/dL (8.5-10.1) 05/29/22 04:10 Total Bilirubin 0.20 mg/dL (0.2-1.0) 05/29/22 04:10 AST 16 Units/L (15-37) 05/29/22 04:10 ALT 9 Units/L (12-78) L 05/29/22 04:10 Alkaline Phosphatase 67 Units/L (46-116) 05/29/22 04:10 C-Reactive Protein 3.70 mg/L (0-3.0) H 05/29/22 04:10 Total Protein 6.9 g/dL (6.4-8.2) 05/29/22 04:10 Albumin 2.3 g/dL (3.4-5.0) L 05/29/22 04:10 Globulin 4.6 g/dL (2.5-4.5) H 05/29/22 04:10 Albumin/Globulin Ratio 0.5 Ratio (1.1-2.1) L 05/29/22 04:10 TSH 3rd Generation 1.968 uIU/mL (0.358-3.74) 05/25/22 05:20 SARS CoV-2 RNA Rapid STACY Negative (NEGATIVE) 05/24/22 20:40 Reason For Visit: DIABETIC FOOT ULCER, HYN, HYPOTHYROIDISM, RLS Discharge Diagnosis All Active Problems (Updated 05/29/22 @ 11:27 by Vishal Lara) Cellulitis of right foot (Acute) Osteomyelitis of foot, right, acute (Acute) Gastro-esophageal reflux (Acute) Abscess of right foot (Acute) Diabetic foot ulcer (Acute) HTN (hypertension) (Acute) Abdominal mass (Acute) Plan of Treatment: Continue with present treatment and follow up plan. Pt is to keep follow up appointment as instructed and take medications as ordered. Discharge Medications Discharge Medications: No Known Drug Allergies Allergy (Verified 09/04/17 11:18) New Prescriptions clindamycin HCl 150 mg capsule 150 mg PO QID #40 caps 05/29/22 [Rx] collagenase clostridium histo. 250 unit/gram topical ointment (Santyl) 1 applic topical QDAY #90 grams 05/29/22 [Rx] oxycodone-acetaminophen 5 mg-325 mg tablet (Percocet) 1 tab PO Q6H PRN #30 tabs 05/29/22 [Rx] Discharge Disposition Assessment: No acute distress noted at discharge. Discharge Plan Discharge Plan Hospital Course: 72 yo female [facility] in [place], [place] Status post incision and drainage of abscess to the dorsum of the right foot between the third and fourth metatarsal heads. She was referred to our emergency room for wound care and IV antibiotics. She was admiitted by me and underwent daily dressing changes with Santyl. Cultures grew staphylococcus aureus ( MSSA) sensitive to clindamycin. She had been treated with intravenous Zosyn prior to this . He will continue daily dressing changes with Santyl and I will see her in one week in follow up. Patient Disposition: 01 HOME, SELF-CARE Condition: Stable Health Concerns: Post Hospitalization: new medications and changes needed to prevent readmission or further decline. Pt educated and given instructions on all concerns. Care Plan Goals: Problem: Pain/Alteration in Comfort Goal: Improve/ Resolve Pain; Achieve Pain Tolerance Instructions: Take pain medications as prescribed. Contact your primary care provider if your pain is unrelieved or worsens. Follow up with primary care provider as directed. Plan of Treatment: Continue with present treatment and follow up plan. Pt is to keep follow up appointment as instructed and take medications as ordered. Assessment: No acute distress noted at discharge. Prescriptions: New clindamycin HCl 150 mg capsule 150 mg PO QID Qty: 40 0RF Santyl 250 unit/gram ointment 1 applic topical QDAY Qty: 90 0RF oxycodone-acetaminophen [Percocet] 5-325 mg tablet 1 tab PO Q6H MDD 4 PRNQty: 30 0RF Continued metformin 500 mg tablet 1 tab PO BID simvastatin 10 mg tablet 1 tab PO QDAY ropinirole 2 mg tablet 1 tab PO HS acetaminophen-codeine 300-60 mg tablet 1 tab PO Q12H PRN (Reason: joint pain) glipizide 5 mg tablet 1 tab PO BID spironolactone 50 mg tablet 1 tab PO QDAY ondansetron HCl 4 mg tablet 1 tab PO Q6H PRN (Reason: nausea/vomiting) dexlansoprazole [Dexilant] 60 mg capsule,biphase delayed releas 1 cap PO QDAY levothyroxine [Synthroid] 50 mcg Tablet 25 mcg PO DAILY gabapentin 300 mg Capsule 300 mg PO TID metoprolol succinate 25 mg Tablet Extended Release 24 Hr 25 mg PO QDAY Follow ups/Referrals Follow ups/Referrals: AXEL GO [Primary Care Provider] - 06/05/22 11:30 am Michele Garcia [STAFF PHYSICIAN] - 06/07/22 1:00 pm Instructions Instructions: Osteomyelitis, Adult, Mechanical Wound Debridement, Care After, Bone Health, Incision and Drainage, Care After, How to Change Your Wound Dressing, [id number], You've Been Prescribed an Antibiotic in the Hospital for an Infection - CDC, Managing Your Hypertension, Blood Glucose Monitoring, Adult Stand Alone Forms: Excuse From Work or School, Precautions for COVID19, [facility], Patient Portal, Social Distancing
== END 2022-05-29 13:52 | disposition home health service (06) | DRG 603 ==
LOC: ER 16:36 → MED/SURG 16:36 → OBSVTOIN 20:17 → MED/SURG 22:16
PROVIDERS: ADMIT Surgery; ATTEND Surgery
DX: Z20.822 Contact with and (suspected) exposure to COVID-19; L03.115 Cellulitis of right lower limb; I10 Essential (primary) hypertension; K21.9 Gastro-esophageal reflux disease without esophagitis; M86.171 Other acute osteomyelitis, right ankle and foot; L02.611 Cutaneous abscess of right foot; L97.519 Non-pressure chronic ulcer of other part of right foot with unspecified severity; E11.621 Type 2 diabetes mellitus with foot ulcer; G25.81 Restless legs syndrome; B95.61 Methicillin susceptible Staphylococcus aureus infection as the cause of diseases classified elsewhere